=== PATIENT | female | born 1940 | race African-American/Black ===

== ENCOUNTER 2017-07-28 18:08 | Inpatient (IN) | payer MEDICARE, MEDICAID ==
[~2017-07-28] VITALS: Ht 165.1 cm; Wt 87.1 kg
[2017-07-28 18:09] VITALS: BP 98/60
[2017-07-28] MEDS ORDERED: DICLO GEL1 EACH TP (18:20)
[2017-07-28] MEDS ORDERED: PLAVIX75 MG ORAL (18:20)
[2017-07-28] MEDS ORDERED: STOOL SOFTENER100 MG PO (18:20)
[2017-07-28] MEDS ORDERED: VITAMIN D31000 UNI1 PO (18:20)
[2017-07-28] MEDS ORDERED: TYLENOL EXTRA500 MG ORAL (18:20)
[2017-07-28] MEDS ORDERED: GABAPENTIN300 MG ORAL (18:20)
[2017-07-28] MEDS ORDERED: FOSAMAX70 MG ORAL ×2 (18:20)
[2017-07-28] MEDS ORDERED: NITROSTAT0.4 M1 SL (18:20)
[2017-07-28] MEDS ORDERED: MISOPROSTOL200 MCG PO (18:20)
[2017-07-28] MEDS ORDERED: LD2JL30 TOPIC (18:20)
[2017-07-28] MEDS ORDERED: POTASSIUM CHLOR8 ME2 PO (18:20)
[2017-07-28] MEDS ORDERED: ATENOLOL50 MG ORAL (18:20)
[2017-07-28] MEDS ORDERED: DICYCLOMINE HCL10 MG PO (18:20)
[2017-07-28] MEDS ORDERED: DEXILANT30 MG ORAL (18:20)
[2017-07-28] MEDS ORDERED: MEDROL DOSEPAK4 MG ORAL (18:20)
--- NOTE | 2017-07-28 19:27 | Emergency Room Report ---
History of Present Illness General Chief Complaint: General Complaint Source: Patient, Family Member, EMS Present Illness HPI Patient is a 76-year-old female brought in by EMS after increased generalized weakness and syncopal episode. Patient reported having of abdominal pain which radiated to her pelvis. The patient was having sharp cramping sensation. This is associated with some increased dysuria. She was having blood drawn at her physician when she subsequently passed out. The patient was sent in by EMS. Allergies: Coded Allergies: MORPHINE (Verified Allergy, Unknown, 07/28/17) PENICILLINS (Verified Allergy, Unknown, 07/28/17) Patient History Past Medical History: see triage record Reviewed Nursing Documentation: PMH: Agreed; PSxH: Agreed Nursing Documentation-PMH Past Medical History: No History, Except For Hx Cardiac Problems: Yes - quadruple bypass Review of Systems All Other Systems: negative except mentioned in HPI Physical Exam Vital Signs Date Time Temp Pulse Resp B/P (MAP) Pulse Ox O2 Delivery O2 Flow Rate FiO2 07/28/17 17:59 97.9 79 16 102/70 98 Room Air 97.9 Sp02 EP Interpretation: reviewed, normal General Appearance: normal inspection, well appearing, no apparent distress, alert, GCS 15, Chronically Ill Head: atraumatic ENT: normal ENT inspection, hearing grossly normal, normal voice Neck: normal inspection, full range of motion, supple, no bony tend Respiratory: normal inspection, lungs clear, normal breath sounds, no respiratory distress, no retraction, no wheezing Cardiovascular #1: regular rate, rhythm, no edema Gastrointestinal: normal inspection, normal bowel sounds, non tender, soft, no guarding, no hernia Genitourinary: no CVA tenderness Musculoskeletal: normal inspection, back normal, normal range of motion Neurologic: normal inspection, alert, oriented x3, responsive, rubber thread spooler III-XII nml as tested, motor strength/tone normal, speech normal Psychiatric: normal inspection, judgement/insight normal, mood/affect normal Skin: normal inspection, normal color, no rash Medical Decision Making Diagnostic Impression: Primary Impression: Syncope Additional Impressions: Coronary artery disease Urinary tract infection ER Course Patient presented for syncope. Differential diagnosis included was not limited to aortic aneurysm, cardiac arrhythmia, vasovagal episode, orthostatic syncope among others.Because of complexity of patient's case laboratory testing and imaging studies were ordered. Laboratory studies showed adequate hemoglobin with some evidence of urinary infection. I EKG interpreted by me showed-sinus bradycardia with a rate of [address] or T wave changes.Patient's troponin was noted to be 0. CT of the abdomen pelvis read by radiology showed Diverticulosis without evidence of diverticulitis. Dr. Venegas was contacted for for inpatient management due to patient's cardiac risk factors. Labs Test 07/28/17 19:50 07/28/17 20:49 White Blood Count 10.2 K/UL (4.8-10.8) Red Blood Count 4.47 M/UL (4.20-5.40) Hemoglobin 13.3 G/DL (12.0-16.0) Hematocrit 39.5 % (37.0-47.0) Mean Corpuscular Volume 88 FL (80-99) Mean Corpuscular Hemoglobin 29.7 PG (27.0-31.0) Mean Corpuscular Hemoglobin Concent 33.6 G/DL (32.0-36.0) Red Cell Distribution Width 12.6 % (11.6-14.8) Platelet Count 237 K/UL (150-450) Mean Platelet Volume 7.8 FL (6.5-10.1) Neutrophils (%) (Auto) 65.2 % (45.0-75.0) Lymphocytes (%) (Auto) 24.4 % (20.0-45.0) Monocytes (%) (Auto) 8.6 % (1.0-10.0) Eosinophils (%) (Auto) 0.8 % (0.0-3.0) Basophils (%) (Auto) 1.0 % (0.0-2.0) Prothrombin Time 10.0 SEC (9.30-11.50) Prothromb Time International Ratio 1.0 (0.9-1.1) Activated Partial Thromboplast Time 24 SEC (23-33) Sodium Level 141 MMOL/L (136-145) Potassium Level 3.1 MMOL/L (3.5-5.1) Chloride Level 104 MMOL/L (98-107) Carbon Dioxide Level 26 MMOL/L (21-32) Anion Gap 11 mmol/L (5-15) Blood Urea Nitrogen 19 mg/dL (7-18) Creatinine 1.2 MG/DL (0.55-1.30) Estimat Glomerular Filtration Rate mL/min (>60) Glucose Level 107 MG/DL (74-106) Calcium Level 9.6 MG/DL (8.5-10.1) Total Bilirubin 0.4 MG/DL (0.2-1.0) Aspartate Amino Transf (AST/SGOT) 13 U/L (15-37) Alanine Aminotransferase (ALT/SGPT) 11 U/L (12-78) Alkaline Phosphatase 71 U/L (46-116) Troponin I 0.000 ng/mL (0.000-0.056) Total Protein 7.6 G/DL (6.4-8.2) Albumin 3.6 G/DL (3.4-5.0) Globulin 4.0 g/dL Albumin/Globulin Ratio 0.9 (1.0-2.7) Lipase 34 U/L (73-393) Urine Color Marta Urine Appearance Slightly cloudy Urine pH 5 (4.5-8.0) Urine Specific [place] 1.015 (1.005-1.035) Urine Protein 2+ (NEGATIVE) Urine Glucose (UA) Negative (NEGATIVE) Urine Ketones 1+ (NEGATIVE) Urine Occult Blood Negative (NEGATIVE) Urine Nitrite Negative (NEGATIVE) Urine Bilirubin 1+ (NEGATIVE) Urine Ictotest Positive Urine Urobilinogen 4 MG/DL (0.0-1.0) Urine Leukocyte Esterase 1+ (NEGATIVE) Urine RBC 0-2 /HPF (0 - 2) Urine WBC 5-10 /HPF (0 - 2) Urine Squamous Epithelial Cells Many /LPF (NONE/OCC) Urine Bacteria Many /HPF (NONE) EKG Diagnostic Results Rate: bradycardiac Rhythm: NSR ST Segments: no acute changes Rhythm Strip Diag. Results EP Interpretation: yes Rhythm: NSR, no PVC's, no ectopy Last Vital Signs Date Time Temp Pulse Resp B/P (MAP) Pulse Ox O2 Delivery O2 Flow Rate FiO2 07/28/17 18:09 97.9 63 23 98/60 99 Room Air 97.9 Status: unchanged Disposition: ADMITTED INPATIENT Condition: Serious Referrals: NON PHYSICIAN (PCP) Lv Ward Jul 28, 2017 19:27
[2017-07-28 20:35] LABS: EOSINOPHILS % (AUTO) 0.8 % (0.0-3.0); HEMATOCRIT 39.5 % (37.0-47.0); HEMOGLOBIN 13.3 G/DL (12.0-16.0); LYMPHOCYTES % (AUTO) 24.4 % (20.0-45.0); MEAN CORPUSCULAR VOLUME 88 FL (80-99); MONOCYTES % (AUTO) 8.6 % (1.0-10.0); NEUTROPHILS % (AUTO) 65.2 % (45.0-75.0); PLATELET COUNT 237 K/UL (150-450); RED BLOOD COUNT 4.47 M/UL (4.20-5.40); RED CELL DISTRIBUTION WIDTH 12.6 % (11.6-14.8); WHITE BLOOD COUNT 10.2 K/UL (4.8-10.8)
[2017-07-28 20:38] LABS: ANION GAP 11 mmol/L (5-15); BLOOD UREA NITROGEN 19 mg/dL (7-18); CALCIUM 9.6 MG/DL (8.5-10.1); CARBON DIOXIDE 26 MMOL/L (21-32); CHLORIDE 104 MMOL/L (98-107); CREATININE 1.2 MG/DL (0.55-1.30); POTASSIUM 3.1 MMOL/L (3.5-5.1); SODIUM 141 MMOL/L (136-145)
[2017-07-28 20:42] LABS: ALANINE AMINOTRANSFERASE 11 U/L (12-78); ALBUMIN 3.6 G/DL (3.4-5.0); ALBUMIN/GLOBULIN RATIO 0.9 (1.0-2.7); ALKALINE PHOSPHATASE 71 U/L (46-116); ASPARTATE AMINO TRANSFERASE 13 U/L (15-37); BILIRUBIN,TOTAL 0.4 MG/DL (0.2-1.0)
[2017-07-28 21:17] LABS: APPEARANCE,URINE SLIGHTLY CLOUDY; BILIRUBIN, URINE 1+ (NEGATIVE); GLUCOSE, URINE (UA) NEGATIVE (NEGATIVE); KETONES,URINE 1+ (NEGATIVE); LEUKOCYTE ESTERASE ,URINE 1+ (NEGATIVE); NITRITE,URINE NEGATIVE (NEGATIVE); PH,URINE 5 (4.5-8.0); PROTEIN,URINE 2+ (NEGATIVE); UROBILINOGEN,URINE 4 MG/DL (0.0-1.0)
[2017-07-28 21:20] LABS: COLOR,URINE AMBER
[2017-07-28 23:00] VITALS: BP 101/75
[2017-07-28] MEDS ORDERED: Dicyclomine HCl 10mg/5ml oral soln ORAL ONE (23:15)
[2017-07-29] VITALS: BP_SYST 115; BP_DIAS 48; BP_DIAS 75
[2017-07-29] MEDS ORDERED: Miralax 17gm pkt ORAL PRN (02:15)
[2017-07-29 04:00] VITALS: BP 107/61
[2017-07-29 07:50] LABS: BASOPHILS % (AUTO) 0.8 % (0.0-2.0); EOSINOPHILS % (AUTO) 1.5 % (0.0-3.0); HEMATOCRIT 37.2 % (37.0-47.0); HEMOGLOBIN 12.6 G/DL (12.0-16.0); MEAN CORPUSCULAR VOLUME 89 FL (80-99); MONOCYTES % (AUTO) 8.6 % (1.0-10.0); NEUTROPHILS % (AUTO) 53.1 % (45.0-75.0); PLATELET COUNT 229 K/UL (150-450); RED BLOOD COUNT 4.17 M/UL (4.20-5.40); RED CELL DISTRIBUTION WIDTH 12.7 % (11.6-14.8); WHITE BLOOD COUNT 8.8 K/UL (4.8-10.8)
[2017-07-29 08:00] VITALS: BP 103/56
[2017-07-29 08:30] LABS: ANION GAP 10 mmol/L (5-15); BLOOD UREA NITROGEN 17 mg/dL (7-18); CALCIUM 9.1 MG/DL (8.5-10.1); CARBON DIOXIDE 26 MMOL/L (21-32); CHLORIDE 104 MMOL/L (98-107); CHOLESTEROL 136 MG/DL (< 200); HDL CHOLESTEROL 68 MG/DL (40-60); POTASSIUM 3.3 MMOL/L (3.5-5.1); SODIUM 140 MMOL/L (136-145); TRIGLYCERIDES 112 MG/DL (30-150)
[2017-07-29] MEDS: Miralax 17gm pkt ORAL SCH (09:01)
[2017-07-29] MEDS: Dicyclomine 10mg Cap ORAL SCH ×4 (09:02→20:40)
[2017-07-29] MEDS: Docusate 100mg cap ORAL SCH ×2 (09:02→20:40)
[2017-07-29] MEDS: Sennosides 8.6mg ORAL SCH (09:03)
[2017-07-29] MEDS: Heparin 5000 units/ml inj SUBQ SCH ×2 (09:06→20:40)
--- NOTE | 2017-07-29 10:29 | Diagnostic Imaging Report ---
Clinical Indication: Abdominal pain Technique: No oral contrast utilized, per emergency room physician request IV administration nonionic contrast. Venous phase spiral acquisition obtained through the abdomen and pelvis. Multiplanar reconstructions were generated. Total dose length product 741.67 mGycm. CTDIvol(s) 15.23 mGy. Dose reduction achieved using automated exposure control Comparison: none Findings: There is colonic diverticulosis. No evidence of diverticulitis. Moderate dense stool is seen in the distal colon. The appendix is normal. No small bowel distention. No free or loculated intraperitoneal air or fluid is evident. The liver, gallbladder, bile ducts are unremarkable. The pancreas is mildly atrophic. The spleen, adrenals and kidneys are unremarkable. No retroperitoneal or mesenteric mass or adenopathy. No pelvic mass or adenopathy. The included lung bases demonstrate some atelectasis and scarring, are otherwise clear. The bones demonstrate minimal degenerative spondylosis changes. Impression: No acute abnormality Colonic diverticulosis. No evidence of diverticulitis Basilar pulmonary atelectasis and/or scarring Minimal degenerative spondylosis incidentally noted This agrees with the preliminary interpretation provided overnight by [facility] teleradiology service. The CT scanner at [facility] is accredited by the [employer] and the scans are performed using protocols designed to limit radiation exposure to as low as reasonably achievable to attain images of sufficient resolution adequate for diagnostic evaluation.
[2017-07-29] MEDS ORDERED: Norco 5mg/325mg tab ORAL PRN (11:15)
[2017-07-29] MEDS ORDERED: HYDROcodone/Acetamin 10/325 tab ORAL PRN (11:15)
[2017-07-29] MEDS ORDERED: Hydromorphone 0.5mg/0.5ml inj IVP PRN (11:45)
[2017-07-29 12:00] VITALS: BP 100/66
[2017-07-29] MEDS: D5 1/2NS w/KCl 20mEq 1,000 ML IV SCH (13:37)
--- NOTE | 2017-07-29 13:44 | History and Physical ---
History of Present Illness General Date patient seen: Jul 29, 2017 Time patient seen: 13:44 Reason for Hospitalization: syncope, abd pain Present Illness HPI 76y/o female with pmh of CAD s/p CABG, CVA, HTN, OA, osteoporosis, fibromyalgia , pseudogout who presents with syncope and abd pain. Pt brought in by EMS after syncopal episode. She was having blood drawn at outpt lab when she subsequently passed out. No reports of seizure activity. No trauma report. Pt also c/o worsening abd pain, as well as pelvic, vaginal and rectal pain. Described as crampy pain in lower abd w/ radiation to pelvis. States she has had similar episodes prior. C/o dysuria. Has h/o UTIs. C/o constipation, no BM in over a week. Denies f/c, n/v, diarrhea, chest pain, SOB, palpitations, dizziness. C/o some abdominal bloating. Denies recent travel or sick contacts. In ED, pt w/ positive U/A c/w UTI, given levaquin. CT a/p showed no acute abnormality but showed diverticulosis. Allergies: Coded Allergies: MORPHINE (Verified Allergy, Unknown, 07/28/17) PENICILLINS (Verified Allergy, Unknown, 07/28/17) Medication History Scheduled Alendronate Sodium* (Fosamax*), 70 MG ORAL 1 TAB EVERY 7 DAYS. , (Reported) Alendronate Sodium* (Fosamax*), 70 MG ORAL 1/2 TAB EVERY MORNIN, (Reported) Atenolol* (Tenormin*), 50 MG ORAL DAILY, (Reported) Clopidogrel Bisulfate* (Plavix*), 75 MG ORAL DAILY, (Reported) Dexlansoprazole (Dexilant), 30 MG ORAL DAILY, (Reported) Dicyclomine Hcl* (Dicyclomine Hcl*), 10 MG PO QID, (Reported) Gabapentin* (Gabapentin*), 300 MG ORAL THREE TIMES A DAY, (Reported) Lidocaine HCL 2% Jelly* (Lidocaine Jelly 2%*), 5 ML TOPIC DAILY, (Reported) Methylprednisolone (Methylprednisolone*), 4 MG ORAL .as directed, (Reported) Misoprostol* (Cytotec*), 200 MCG PO 4 TAB VAGINAL, (Reported) Scheduled PRN Acetaminophen* (Tylenol Extra Strength*), 500 MG ORAL Q6H PRN for Mild Pain/ Temp > 100.5, (Reported) Nitroglycerin (Nitrostat), 0.4 MG SL Q5M X3 DOSES PRN for CHEST PAIN, (Reported) Miscellaneous Medications Cholecalciferol (Vitamin D3) (Vitamin D3), 1,000 UNIT PO, (Reported) Diclofenac Sodium (Diclo Gel), 1 EACH TP, (Reported) Docusate Sodium (Stool Softener), 100 MG PO, (Reported) Potassium Chloride (Potassium Chloride), 8 MEQ PO, (Reported) Patient History History Provided By: Patient, Medical Record Healthcare decision maker Resuscitation status Full Code Advanced Directive on File No Past Medical/Surgical History Past Medical/Surgical History: (1) CAD s/p CABG (2) CVA (cerebral vascular accident) (3) HTN (hypertension) (4) Osteoporosis (5) Osteoarthritis (6) Fibromyalgia (7) Degenerative disc disease (8) Pseudogout (9) Chondrocalcinosis Family History Family History: Patient reports no known family medical history. Social History Social History: (1) lives at home (2) Smokes 6 to 10 cigarettes per day Review of Systems Constitutional: Reports: malaise, weakness Eye: Reports: no symptoms ENT: Reports: no symptoms Respiratory: Reports: no symptoms Cardiovascular: Reports: syncope Gastrointestinal: Reports: abdominal pain, constipation Genitourinary: Reports: dysuria, pain Musculoskeletal: Reports: no symptoms Skin: Reports: no symptoms Psychiatric: Reports: no symptoms Neurological: Reports: no symptoms Endocrine: Reports: no symptoms Hematologic/Lymphatic: Reports: no symptoms Physical Exam Physical Exam Narrative General: alert, cooperative, no distress, appears stated age Head: normocephalic, without obvious abnormality, atraumatic Eyes: conjunctivae/corneas clear. PERRL, EOM's intact Throat: lips, mucosa, and tongue normal. Dry MM Neck: supple, symmetrical, trachea midline, and no JVD Lungs: clear to auscultation bilaterally Heart: regular rate and rhythm, S1, S2 normal, no murmur, click, rub or gallop Abdomen: soft, +TTP of lower abd w/o rebound or guarding, non-distended, bowel sounds normal Extremities: extremities normal, atraumatic, no cyanosis or edema Pulses: 2+ and symmetric Skin: skin color, texture, turgor normal; no rashes or lesions Neurologic: grossly normal, no focal deficits Last 24 Hour Vital Signs Date Time Temp Pulse Resp B/P (MAP) Pulse Ox O2 Delivery O2 Flow Rate FiO2 07/29/17 08:00 61 07/29/17 04:00 71 07/29/17 04:00 97.7 68 20 107/61 100 Room Air 97.7 07/29/17 00:00 63 15 115/75 100 Room Air 07/29/17 00:00 98.1 55 15 115/75 100 Room Air 208.6 63 07/29/17 00:00 98.1 55 18 115/48 98 Room Air 98.1 07/28/17 23:25 97.9 07/28/17 23:00 97.9 60 14 101/75 98 Room Air 97.9 07/28/17 18:09 97.9 63 23 98/60 99 Room Air 97.9 07/28/17 17:59 97.9 79 16 102/70 98 Room Air 97.9 Intake and Output 07/28/17 07/29/17 19:00 07:00 Intake Total 0 ml Balance 0 ml Intake Oral 0 ml # Voids 1 Laboratory Tests Test 07/28/17 19:50 07/28/17 20:49 07/29/17 06:55 White Blood Count 10.2 K/UL (4.8-10.8) 8.8 K/UL (4.8-10.8) Red Blood Count 4.47 M/UL (4.20-5.40) 4.17 M/UL (4.20-5.40) L Hemoglobin 13.3 G/DL (12.0-16.0) 12.6 G/DL (12.0-16.0) Hematocrit 39.5 % (37.0-47.0) 37.2 % (37.0-47.0) Mean Corpuscular Volume 88 FL (80-99) 89 FL (80-99) Mean Corpuscular Hemoglobin 29.7 PG (27.0-31.0) 30.1 PG (27.0-31.0) Mean Corpuscular Hemoglobin Concent 33.6 G/DL (32.0-36.0) 33.8 G/DL (32.0-36.0) Red Cell Distribution Width 12.6 % (11.6-14.8) 12.7 % (11.6-14.8) Platelet Count 237 K/UL (150-450) 229 K/UL (150-450) Mean Platelet Volume 7.8 FL (6.5-10.1) 8.1 FL (6.5-10.1) Neutrophils (%) (Auto) 65.2 % (45.0-75.0) 53.1 % (45.0-75.0) Lymphocytes (%) (Auto) 24.4 % (20.0-45.0) 36.0 % (20.0-45.0) Monocytes (%) (Auto) 8.6 % (1.0-10.0) 8.6 % (1.0-10.0) Eosinophils (%) (Auto) 0.8 % (0.0-3.0) 1.5 % (0.0-3.0) Basophils (%) (Auto) 1.0 % (0.0-2.0) 0.8 % (0.0-2.0) Prothrombin Time 10.0 SEC (9.30-11.50) Prothromb Time International Ratio 1.0 (0.9-1.1) Activated Partial Thromboplast Time 24 SEC (23-33) Sodium Level 141 MMOL/L (136-145) 140 MMOL/L (136-145) Potassium Level 3.1 MMOL/L (3.5-5.1) L 3.3 MMOL/L (3.5-5.1) L Chloride Level 104 MMOL/L (98-107) 104 MMOL/L (98-107) Carbon Dioxide Level 26 MMOL/L (21-32) 26 MMOL/L (21-32) Anion Gap 11 mmol/L (5-15) 10 mmol/L (5-15) Blood Urea Nitrogen 19 mg/dL (7-18) H 17 mg/dL (7-18) Creatinine 1.2 MG/DL (0.55-1.30) 1.0 MG/DL (0.55-1.30) Estimat Glomerular Filtration Rate mL/min (>60) mL/min (>60) Glucose Level 107 MG/DL (74-106) H 90 MG/DL (74-106) Calcium Level 9.6 MG/DL (8.5-10.1) 9.1 MG/DL (8.5-10.1) Total Bilirubin 0.4 MG/DL (0.2-1.0) Aspartate Amino Transf (AST/SGOT) 13 U/L (15-37) L Alanine Aminotransferase (ALT/SGPT) 11 U/L (12-78) L Alkaline Phosphatase 71 U/L (46-116) Troponin I 0.000 ng/mL (0.000-0.056) Total Protein 7.6 G/DL (6.4-8.2) Albumin 3.6 G/DL (3.4-5.0) Globulin 4.0 g/dL Albumin/Globulin Ratio 0.9 (1.0-2.7) L Lipase 34 U/L (73-393) L Urine Color Marta Urine Appearance Slightly cloudy Urine pH 5 (4.5-8.0) Urine Specific [place] 1.015 (1.005-1.035) Urine Protein 2+ (NEGATIVE) H Urine Glucose (UA) Negative (NEGATIVE) Urine Ketones 1+ (NEGATIVE) H Urine Occult Blood Negative (NEGATIVE) Urine Nitrite Negative (NEGATIVE) Urine Bilirubin 1+ (NEGATIVE) H Urine Ictotest Positive Urine Urobilinogen 4 MG/DL (0.0-1.0) H Urine Leukocyte Esterase 1+ (NEGATIVE) H Urine RBC 0-2 /HPF (0 - 2) Urine WBC 5-10 /HPF (0 - 2) H Urine Squamous Epithelial Cells Many /LPF (NONE/OCC) H Urine Bacteria Many /HPF (NONE) H Hemoglobin A1c 6.0 % (4.3-6.0) Magnesium Level 1.8 MG/DL (1.8-2.4) Triglycerides Level 112 MG/DL (30-150) Cholesterol Level 136 MG/DL (< 200) LDL Cholesterol 61 mg/dL (<100) HDL Cholesterol 68 MG/DL (40-60) H Cholesterol/HDL Ratio 2.0 (3.3-4.4) L Thyroid Stimulating Hormone (TSH) 0.397 uiU/mL (0.358-3.740) Microbiology Date/Time Source Procedure Growth Status 07/28/17 20:49 Urine,Clean Catch Urine Culture - Preliminary NO GROWTH Resulted Height (Feet): 5 Height (Inches): 5.00 Weight (Pounds): 192 Medications Current Medications Medications (Trade) Dose Ordered Sig/Ej Route PRN Reason Start Time Stop Time Status Last Admin Dose Admin Acetaminophen (Tylenol) 650 mg Q4H PRN ORAL Mild Pain (Pain Scale 1-3) 07/29/17 02:15 08/28/17 02:14 07/29/17 09:05 Acetaminophen (Tylenol) 650 mg Q4H PRN ORAL fever 07/29/17 02:15 08/28/17 02:14 Acetaminophen/ Hydrocodone Bitart ([place] 10/325) 1 tab Q4H PRN ORAL Severe Pain (Pain Scale 7-10) 07/29/17 11:15 08/05/17 11:14 Future Hold Acetaminophen/ Hydrocodone Bitart ([place] 5/325) 1 tab Q4H PRN ORAL Moderate Pain (Pain Scale 4-6) 07/29/17 11:15 08/05/17 11:14 Future Hold Atenolol (Tenormin) 50 mg DAILY ORAL 07/29/17 09:00 08/28/17 08:59 Bisacodyl (Dulcolax) 10 mg DAILYPRN PRN RECTAL Constipation 07/29/17 02:15 08/28/17 02:14 Clopidogrel Bisulfate (Plavix) 75 mg DAILY ORAL 07/29/17 09:00 08/28/17 08:59 07/29/17 09:01 Dextrose (Dextrose 50%) 25 ml STAT PRN IV Hypoglycemia 07/29/17 02:15 08/28/17 02:14 Dextrose (Dextrose 50%) 50 ml STAT PRN IV Hypoglycemia 07/29/17 02:15 08/28/17 02:14 Dextrose/ Electrolytes 1,000 ml @ 75 mls/hr [id number] IV 07/29/17 14:30 08/28/17 14:29 07/29/17 13:37 Dicyclomine HCl (Bentyl) 10 mg QID ORAL 07/29/17 09:00 08/28/17 08:59 07/29/17 13:37 Diphenhydramine HCl (Benadryl) 25 mg Q6H PRN ORAL Itching/Pruritis 07/29/17 02:15 08/28/17 02:14 Docusate Sodium (Colace) 100 mg EVERY 12 HOURS ORAL 07/29/17 09:00 08/28/17 08:59 07/29/17 09:02 Gabapentin (Neurontin) 300 mg THREE TIMES A DAY ORAL 07/29/17 09:00 08/28/17 08:59 07/29/17 13:37 Heparin Sodium (Porcine) (Heparin 5000 units/ml) 5,000 units EVERY 12 HOURS SUBQ 07/29/17 09:00 08/28/17 08:59 07/29/17 09:06 Hydromorphone HCl (Dilaudid) 0.5 mg Q4H PRN IVP pain 4-10 07/29/17 12:15 08/05/17 11:44 07/29/17 12:21 Ondansetron HCl (Zofran) 4 mg Q6H PRN IVP Nausea & Vomiting 07/29/17 02:15 08/28/17 02:14 Pantoprazole (Protonix) 40 mg ACBREAKFAST ORAL 07/29/17 06:30 08/28/17 06:29 07/29/17 07:22 Polyethylene Glycol (Miralax) 17 gm DAILY ORAL 07/29/17 09:00 08/28/17 02:14 07/29/17 09:01 Sennosides (Senokot) 2 tab DAILY ORAL 07/29/17 09:00 08/28/17 08:59 07/29/17 09:03 Assessment/Plan Problem List: (1) Syncope ICD Codes: R55 - Syncope and collapse SNOMED: 821258658 Qualifiers: Qualified Codes: R55 - Syncope and collapse (2) Hypokalemia ICD Codes: E87.6 - Hypokalemia SNOMED: 55898613 (3) Abdominal pain ICD Codes: R10.9 - Unspecified abdominal pain SNOMED: 06679881 Qualifiers: Qualified Codes: R10.84 - Generalized abdominal pain (4) UTI (urinary tract infection) ICD Codes: N39.0 - Urinary tract infection, site not specified SNOMED: 62351925 (5) CAD s/p CABG (6) CVA (cerebral vascular accident) ICD Codes: I63.9 - Cerebral infarction, unspecified SNOMED: 912407049 (7) HTN (hypertension) ICD Codes: I10 - Essential (primary) hypertension SNOMED: 79081093 Status: stable Assessment/Plan Syncope appears to be vasovagal type given occurred while getting blood drawn and in setting of pain Abd pain possibly 2/2 UTI Admit to tele Cardiology consulted for syncope eval Trop neg. EKG w/o acute ST/T changes Check TTE Check TSH, A1C, B12/folate, Vit D GI consulted given abd pain CLD for now mIVFs w/ KCl Monitor lytes and replete Surgery eval Empiric ceftriaxone for UTI (07/29-) s/p levaquin in ED on 07/28 F/u urine culture Pain control, bowel regimen, supportive care Pt currently requiring IV narcotics for pain control. Wean off as tolerated DVT Prophylaxis: SCD, HSQ Code Status: Full Hospital Classification Declaration: Based on this initial evaluation, and depending on the patient's clinical course, I anticipate that this patient will require hospitalization for 2-3 days for syncope eval, intractable abd pain and close respiratory/hemodynamic monitoring. Disposition: Once the patient is stable to leave the hospital, I anticipate the patient will likely be discharged to the following environment: home with HH vs SNF I spent 72 minutes on this patient's case, and >50% were dedicated to counseling and/or care coordination. Discussed with patient/family, nursing staff, SW/CM, GI, surgery, cardiology regarding clinical status, treatment course, and disposition planning. D/w GI and surgery regarding abd pain, abx. D/ w cardiology re syncope eval. Medical decision complexity: high Pt requiring IV narcotics for pain control Discussions with GI, surgery, cardiology Time of note may not reflect time of encounter. Galen Mehta M.D. Jul 29, 2017 13:44
--- NOTE | 2017-07-29 15:15 | Cardiac Electrophysiology PN ---
Subjective Subjective [id number] Objective Last 24 Hour Vital Signs Date Time Temp Pulse Resp B/P (MAP) Pulse Ox O2 Delivery O2 Flow Rate FiO2 07/29/17 08:00 61 07/29/17 04:00 71 07/29/17 04:00 97.7 68 20 107/61 100 Room Air 97.7 07/29/17 00:00 63 15 115/75 100 Room Air 07/29/17 00:00 98.1 55 15 115/75 100 Room Air 208.6 63 07/29/17 00:00 98.1 55 18 115/48 98 Room Air 98.1 07/28/17 23:25 97.9 07/28/17 23:00 97.9 60 14 101/75 98 Room Air 97.9 07/28/17 18:09 97.9 63 23 98/60 99 Room Air 97.9 07/28/17 17:59 97.9 79 16 102/70 98 Room Air 97.9 Intake and Output 07/28/17 07/29/17 19:00 07:00 Intake Total 0 ml Balance 0 ml Intake Oral 0 ml # Voids 1 Laboratory Tests Test 07/28/17 19:50 07/28/17 20:49 07/29/17 06:55 White Blood Count 10.2 K/UL (4.8-10.8) 8.8 K/UL (4.8-10.8) Red Blood Count 4.47 M/UL (4.20-5.40) 4.17 M/UL (4.20-5.40) L Hemoglobin 13.3 G/DL (12.0-16.0) 12.6 G/DL (12.0-16.0) Hematocrit 39.5 % (37.0-47.0) 37.2 % (37.0-47.0) Mean Corpuscular Volume 88 FL (80-99) 89 FL (80-99) Mean Corpuscular Hemoglobin 29.7 PG (27.0-31.0) 30.1 PG (27.0-31.0) Mean Corpuscular Hemoglobin Concent 33.6 G/DL (32.0-36.0) 33.8 G/DL (32.0-36.0) Red Cell Distribution Width 12.6 % (11.6-14.8) 12.7 % (11.6-14.8) Platelet Count 237 K/UL (150-450) 229 K/UL (150-450) Mean Platelet Volume 7.8 FL (6.5-10.1) 8.1 FL (6.5-10.1) Neutrophils (%) (Auto) 65.2 % (45.0-75.0) 53.1 % (45.0-75.0) Lymphocytes (%) (Auto) 24.4 % (20.0-45.0) 36.0 % (20.0-45.0) Monocytes (%) (Auto) 8.6 % (1.0-10.0) 8.6 % (1.0-10.0) Eosinophils (%) (Auto) 0.8 % (0.0-3.0) 1.5 % (0.0-3.0) Basophils (%) (Auto) 1.0 % (0.0-2.0) 0.8 % (0.0-2.0) Prothrombin Time 10.0 SEC (9.30-11.50) Prothromb Time International Ratio 1.0 (0.9-1.1) Activated Partial Thromboplast Time 24 SEC (23-33) Sodium Level 141 MMOL/L (136-145) 140 MMOL/L (136-145) Potassium Level 3.1 MMOL/L (3.5-5.1) L 3.3 MMOL/L (3.5-5.1) L Chloride Level 104 MMOL/L (98-107) 104 MMOL/L (98-107) Carbon Dioxide Level 26 MMOL/L (21-32) 26 MMOL/L (21-32) Anion Gap 11 mmol/L (5-15) 10 mmol/L (5-15) Blood Urea Nitrogen 19 mg/dL (7-18) H 17 mg/dL (7-18) Creatinine 1.2 MG/DL (0.55-1.30) 1.0 MG/DL (0.55-1.30) Estimat Glomerular Filtration Rate mL/min (>60) mL/min (>60) Glucose Level 107 MG/DL (74-106) H 90 MG/DL (74-106) Calcium Level 9.6 MG/DL (8.5-10.1) 9.1 MG/DL (8.5-10.1) Total Bilirubin 0.4 MG/DL (0.2-1.0) Aspartate Amino Transf (AST/SGOT) 13 U/L (15-37) L Alanine Aminotransferase (ALT/SGPT) 11 U/L (12-78) L Alkaline Phosphatase 71 U/L (46-116) Troponin I 0.000 ng/mL (0.000-0.056) Total Protein 7.6 G/DL (6.4-8.2) Albumin 3.6 G/DL (3.4-5.0) Globulin 4.0 g/dL Albumin/Globulin Ratio 0.9 (1.0-2.7) L Lipase 34 U/L (73-393) L Urine Color Marta Urine Appearance Slightly cloudy Urine pH 5 (4.5-8.0) Urine Specific [place] 1.015 (1.005-1.035) Urine Protein 2+ (NEGATIVE) H Urine Glucose (UA) Negative (NEGATIVE) Urine Ketones 1+ (NEGATIVE) H Urine Occult Blood Negative (NEGATIVE) Urine Nitrite Negative (NEGATIVE) Urine Bilirubin 1+ (NEGATIVE) H Urine Ictotest Positive Urine Urobilinogen 4 MG/DL (0.0-1.0) H Urine Leukocyte Esterase 1+ (NEGATIVE) H Urine RBC 0-2 /HPF (0 - 2) Urine WBC 5-10 /HPF (0 - 2) H Urine Squamous Epithelial Cells Many /LPF (NONE/OCC) H Urine Bacteria Many /HPF (NONE) H Hemoglobin A1c 6.0 % (4.3-6.0) Magnesium Level 1.8 MG/DL (1.8-2.4) Triglycerides Level 112 MG/DL (30-150) Cholesterol Level 136 MG/DL (< 200) LDL Cholesterol 61 mg/dL (<100) HDL Cholesterol 68 MG/DL (40-60) H Cholesterol/HDL Ratio 2.0 (3.3-4.4) L Thyroid Stimulating Hormone (TSH) 0.397 uiU/mL (0.358-3.740) Microbiology Date/Time Source Procedure Growth Status 07/28/17 20:49 Urine,Clean Catch Urine Culture - Preliminary NO GROWTH Resulted Parish Chase MD Jul 29, 2017 15:15
[2017-07-29 16:00] VITALS: BP 103/57
[2017-07-29] MEDS ORDERED: Polyethylene Glycol 238gm bottle ORAL ONE (16:00)
[2017-07-29] MEDS ORDERED: Bisacodyl EC 5mg tab ORAL ONE (16:00)
[2017-07-29] MEDS ORDERED: Magnesium Citrate Liq Btl ORAL ONE (16:00)
--- NOTE | 2017-07-29 16:11 | Consultation ---
History of Present Illness General Date patient seen: Jul 29, 2017 Chief Complaint: General Complaint Reason for Consultation: abdominal pain Present Illness HPI 76 year old female with multiple medical comorbidities presented with syncope and noted to have abdominal, pelvic, vaginal pain. pain as cramping discomfort in lower abdomen with radiation to pelvis. similar episodes prior. no n/v/f/ c. feels somewhat bloated. in ED had labs which were okay, CT without acute abnormality, and UA with UTI. surgery called to evaluate for abdominal pain. patient seen, chart reviewed, patient examined. Allergies: Coded Allergies: MORPHINE (Verified Allergy, Unknown, 07/28/17) PENICILLINS (Verified Allergy, Unknown, 07/28/17) Medication History Scheduled Alendronate Sodium* (Fosamax*), 70 MG ORAL 1 TAB EVERY 7 DAYS. , (Reported) Alendronate Sodium* (Fosamax*), 70 MG ORAL 1/2 TAB EVERY MORNIN, (Reported) Atenolol* (Tenormin*), 50 MG ORAL DAILY, (Reported) Clopidogrel Bisulfate* (Plavix*), 75 MG ORAL DAILY, (Reported) Dexlansoprazole (Dexilant), 30 MG ORAL DAILY, (Reported) Dicyclomine Hcl* (Dicyclomine Hcl*), 10 MG PO QID, (Reported) Gabapentin* (Gabapentin*), 300 MG ORAL THREE TIMES A DAY, (Reported) Lidocaine HCL 2% Jelly* (Lidocaine Jelly 2%*), 5 ML TOPIC DAILY, (Reported) Methylprednisolone (Methylprednisolone*), 4 MG ORAL .as directed, (Reported) Misoprostol* (Cytotec*), 200 MCG PO 4 TAB VAGINAL, (Reported) Scheduled PRN Acetaminophen* (Tylenol Extra Strength*), 500 MG ORAL Q6H PRN for Mild Pain/ Temp > 100.5, (Reported) Nitroglycerin (Nitrostat), 0.4 MG SL Q5M X3 DOSES PRN for CHEST PAIN, (Reported) Miscellaneous Medications Cholecalciferol (Vitamin D3) (Vitamin D3), 1,000 UNIT PO, (Reported) Diclofenac Sodium (Diclo Gel), 1 EACH TP, (Reported) Docusate Sodium (Stool Softener), 100 MG PO, (Reported) Potassium Chloride (Potassium Chloride), 8 MEQ PO, (Reported) Patient History History Provided By: Patient, Medical Record, PMD Healthcare decision maker Resuscitation status Full Code Advanced Directive on File No Past Medical/Surgical History Past Medical/Surgical History: (1) Abdominal pain (2) Coronary artery disease (3) Urinary tract infection (4) Syncope Review of Systems All Other Systems: negative except mentioned in HPI Physical Exam General Appearance: no apparent distress, alert Lines, tubes and drains: peripheral HEENT: normocephalic, mucous membranes moist Neck: normal inspection Respiratory/Chest: lungs clear, normal breath sounds, no respiratory distress, no accessory muscle use Cardiovascular/Chest: normal peripheral pulses, normal rate Abdomen: normal bowel sounds, soft, no organomegaly, no mass, tender Extremities: normal inspection Skin Exam: normal pigmentation Neurologic: alert, oriented x 3, responsive Last 24 Hour Vital Signs Date Time Temp Pulse Resp B/P (MAP) Pulse Ox O2 Delivery O2 Flow Rate FiO2 07/29/17 08:00 61 07/29/17 04:00 71 07/29/17 04:00 97.7 68 20 107/61 100 Room Air 97.7 07/29/17 00:00 63 15 115/75 100 Room Air 07/29/17 00:00 98.1 55 15 115/75 100 Room Air 208.6 63 07/29/17 00:00 98.1 55 18 115/48 98 Room Air 98.1 07/28/17 23:25 97.9 07/28/17 23:00 97.9 60 14 101/75 98 Room Air 97.9 07/28/17 18:09 97.9 63 23 98/60 99 Room Air 97.9 07/28/17 17:59 97.9 79 16 102/70 98 Room Air 97.9 Intake and Output 07/28/17 07/29/17 19:00 07:00 Intake Total 0 ml Balance 0 ml Intake Oral 0 ml # Voids 1 Laboratory Tests Test 07/28/17 19:50 07/28/17 20:49 07/29/17 06:55 White Blood Count 10.2 K/UL (4.8-10.8) 8.8 K/UL (4.8-10.8) Red Blood Count 4.47 M/UL (4.20-5.40) 4.17 M/UL (4.20-5.40) L Hemoglobin 13.3 G/DL (12.0-16.0) 12.6 G/DL (12.0-16.0) Hematocrit 39.5 % (37.0-47.0) 37.2 % (37.0-47.0) Mean Corpuscular Volume 88 FL (80-99) 89 FL (80-99) Mean Corpuscular Hemoglobin 29.7 PG (27.0-31.0) 30.1 PG (27.0-31.0) Mean Corpuscular Hemoglobin Concent 33.6 G/DL (32.0-36.0) 33.8 G/DL (32.0-36.0) Red Cell Distribution Width 12.6 % (11.6-14.8) 12.7 % (11.6-14.8) Platelet Count 237 K/UL (150-450) 229 K/UL (150-450) Mean Platelet Volume 7.8 FL (6.5-10.1) 8.1 FL (6.5-10.1) Neutrophils (%) (Auto) 65.2 % (45.0-75.0) 53.1 % (45.0-75.0) Lymphocytes (%) (Auto) 24.4 % (20.0-45.0) 36.0 % (20.0-45.0) Monocytes (%) (Auto) 8.6 % (1.0-10.0) 8.6 % (1.0-10.0) Eosinophils (%) (Auto) 0.8 % (0.0-3.0) 1.5 % (0.0-3.0) Basophils (%) (Auto) 1.0 % (0.0-2.0) 0.8 % (0.0-2.0) Prothrombin Time 10.0 SEC (9.30-11.50) Prothromb Time International Ratio 1.0 (0.9-1.1) Activated Partial Thromboplast Time 24 SEC (23-33) Sodium Level 141 MMOL/L (136-145) 140 MMOL/L (136-145) Potassium Level 3.1 MMOL/L (3.5-5.1) L 3.3 MMOL/L (3.5-5.1) L Chloride Level 104 MMOL/L (98-107) 104 MMOL/L (98-107) Carbon Dioxide Level 26 MMOL/L (21-32) 26 MMOL/L (21-32) Anion Gap 11 mmol/L (5-15) 10 mmol/L (5-15) Blood Urea Nitrogen 19 mg/dL (7-18) H 17 mg/dL (7-18) Creatinine 1.2 MG/DL (0.55-1.30) 1.0 MG/DL (0.55-1.30) Estimat Glomerular Filtration Rate mL/min (>60) mL/min (>60) Glucose Level 107 MG/DL (74-106) H 90 MG/DL (74-106) Calcium Level 9.6 MG/DL (8.5-10.1) 9.1 MG/DL (8.5-10.1) Total Bilirubin 0.4 MG/DL (0.2-1.0) Aspartate Amino Transf (AST/SGOT) 13 U/L (15-37) L Alanine Aminotransferase (ALT/SGPT) 11 U/L (12-78) L Alkaline Phosphatase 71 U/L (46-116) Troponin I 0.000 ng/mL (0.000-0.056) Total Protein 7.6 G/DL (6.4-8.2) Albumin 3.6 G/DL (3.4-5.0) Globulin 4.0 g/dL Albumin/Globulin Ratio 0.9 (1.0-2.7) L Lipase 34 U/L (73-393) L Urine Color Marta Urine Appearance Slightly cloudy Urine pH 5 (4.5-8.0) Urine Specific [place] 1.015 (1.005-1.035) Urine Protein 2+ (NEGATIVE) H Urine Glucose (UA) Negative (NEGATIVE) Urine Ketones 1+ (NEGATIVE) H Urine Occult Blood Negative (NEGATIVE) Urine Nitrite Negative (NEGATIVE) Urine Bilirubin 1+ (NEGATIVE) H Urine Ictotest Positive Urine Urobilinogen 4 MG/DL (0.0-1.0) H Urine Leukocyte Esterase 1+ (NEGATIVE) H Urine RBC 0-2 /HPF (0 - 2) Urine WBC 5-10 /HPF (0 - 2) H Urine Squamous Epithelial Cells Many /LPF (NONE/OCC) H Urine Bacteria Many /HPF (NONE) H Hemoglobin A1c 6.0 % (4.3-6.0) Magnesium Level 1.8 MG/DL (1.8-2.4) Triglycerides Level 112 MG/DL (30-150) Cholesterol Level 136 MG/DL (< 200) LDL Cholesterol 61 mg/dL (<100) HDL Cholesterol 68 MG/DL (40-60) H Cholesterol/HDL Ratio 2.0 (3.3-4.4) L Thyroid Stimulating Hormone (TSH) 0.397 uiU/mL (0.358-3.740) Microbiology Date/Time Source Procedure Growth Status 07/28/17 20:49 Urine,Clean Catch Urine Culture - Preliminary NO GROWTH Resulted Height (Feet): 5 Height (Inches): 5.00 Weight (Pounds): 192 Medications Current Medications Medications (Trade) Dose Ordered Sig/Ej Route PRN Reason Start Time Stop Time Status Last Admin Dose Admin Acetaminophen (Tylenol) 650 mg Q4H PRN ORAL Mild Pain (Pain Scale 1-3) 07/29/17 02:15 08/28/17 02:14 07/29/17 09:05 Acetaminophen (Tylenol) 650 mg Q4H PRN ORAL fever 07/29/17 02:15 08/28/17 02:14 Atenolol (Tenormin) 50 mg DAILY ORAL 07/29/17 09:00 08/28/17 08:59 Bisacodyl (Dulcolax) 10 mg DAILYPRN PRN RECTAL Constipation 07/29/17 02:15 08/28/17 02:14 Bisacodyl (Dulcolax) 10 mg ONCE ONCE ORAL 07/29/17 16:00 07/29/17 16:01 Clopidogrel Bisulfate (Plavix) 75 mg DAILY ORAL 07/29/17 09:00 08/28/17 08:59 07/29/17 09:01 Dextrose (Dextrose 50%) 25 ml STAT PRN IV Hypoglycemia 07/29/17 02:15 08/28/17 02:14 Dextrose (Dextrose 50%) 50 ml STAT PRN IV Hypoglycemia 07/29/17 02:15 08/28/17 02:14 Dextrose/ Electrolytes 1,000 ml @ 75 mls/hr [id number] IV 07/29/17 14:30 08/28/17 14:29 07/29/17 13:37 Dicyclomine HCl (Bentyl) 10 mg QID ORAL 07/29/17 09:00 08/28/17 08:59 07/29/17 13:37 Diphenhydramine HCl (Benadryl) 25 mg Q6H PRN ORAL Itching/Pruritis 07/29/17 02:15 08/28/17 02:14 Docusate Sodium (Colace) 100 mg EVERY 12 HOURS ORAL 07/29/17 09:00 08/28/17 08:59 07/29/17 09:02 Gabapentin (Neurontin) 300 mg THREE TIMES A DAY ORAL 07/29/17 09:00 08/28/17 08:59 07/29/17 13:37 Heparin Sodium (Porcine) (Heparin 5000 units/ml) 5,000 units EVERY 12 HOURS SUBQ 07/29/17 09:00 08/28/17 08:59 07/29/17 09:06 Hydromorphone HCl (Dilaudid) 0.5 mg Q4H PRN IVP pain 4-10 07/29/17 16:00 08/05/17 15:59 Magnesium Citrate (Citrate Of Magnesia) 300 ml ONCE ONCE ORAL 07/29/17 16:00 07/29/17 16:01 Ondansetron HCl (Zofran) 4 mg Q6H PRN IVP Nausea & Vomiting 07/29/17 02:15 08/28/17 02:14 07/29/17 14:42 Pantoprazole (Protonix) 40 mg ACBREAKFAST ORAL 07/29/17 06:30 08/28/17 06:29 07/29/17 07:22 Polyethylene Glycol (Miralax) 17 gm DAILY ORAL 07/29/17 09:00 08/28/17 02:14 07/29/17 09:01 Polyethylene Glycol (Miralax) 238 gm ONCE ONCE ORAL 07/29/17 16:00 07/29/17 16:01 Sennosides (Senokot) 2 tab DAILY ORAL 07/29/17 09:00 08/28/17 08:59 07/29/17 09:03 Sodium Phosphate (Fleet's Sodium Phosl Enema) 133 ml ONCE ONCE RECTAL 07/29/17 23:00 07/29/17 23:01 Assessment/Plan Problem List: (1) Abdominal pain Assessment & Plan: 76F with abdominal discomfort with radiation to pelvis. afebrile, HD Stable, labs okay, CT reviewed, exam with lower abdominal and pelvic tenderness. likely related to UTI she has. describes dysuria. -no acute surgical intervention necessary. -okay for diet -abx -f/u urine culture -will follow with recs thank you for this consultation. ICD Codes: R10.9 - Unspecified abdominal pain SNOMED: [id number] Qualifiers: Qualified Codes: R10.84 - Generalized abdominal pain Status: stable John Panda Jul 29, 2017 16:11
[2017-07-29] MEDS ORDERED: cefTRIAXone 1 GM in D5W 55 ML IVPB SCH (18:00)
--- NOTE | 2017-07-29 18:22 | GI Initial Consult Note ---
HawaKacey Cannon N.P. 07/29/17 1822: History of Present Illness General Date patient seen: Jul 29, 2017 Time patient seen: 18:18 Reason for Hospitalization: General Complaint Referring physician: VARSHA MENDOZA Reason for Consultation: abdominal pain Present Illness HPI 76 year old female with multiple medical comorbidities presented with syncope and noted to have abdominal, pelvic, vaginal pain. pain as cramping discomfort in lower abdomen with radiation to pelvis. similar episodes prior. no n/v/f/ c. feels somewhat bloated. in ED had labs which were okay, CT without acute abnormality, and UA with UTI. surgery called to evaluate for abdominal pain. patient seen, chart reviewed, patient examined. GI consulted for rectal pain / abdominal pain. Pt seen, awake A&Ox4 c/o of generalized pain, abdomen tender to touch with ?voluntary guarding. C/o of severe rectal pain. Pt was scheduled for outpatient EGD/colonoscopy. CT reviewed shows no acute abnormality. Colonic diverticulosis. No evidence of diverticulitis. Basilar pulmonary atelectasis and/or scarring. Minimal degenerative spondylosis incidentally noted. Home Meds Active Scripts Nitrofurantoin Monohyd/M-Cryst* (MACROBID 100 MG*) 100 Mg Capsule, 100 MG ORAL EVERY 12 HOURS for 7 Days, #14 CAP Prov:Galen Mehta M.D. 07/31/17 Reported Medications Docusate Sodium (STOOL SOFTENER) 100 Mg Capsule, 100 MG PO, CAP 07/28/17 Potassium Chloride (POTASSIUM CHLORIDE) 8 Meq Capsule.er, 8 MEQ PO, CAP 07/28/17 Clopidogrel Bisulfate* (PLAVIX*) 75 Mg Tablet, 75 MG ORAL DAILY, TAB 07/28/17 Nitroglycerin (NITROSTAT) 0.4 Mg Tab.subl, 0.4 MG SL Q5M X3 DOSES PRN for CHEST PAIN, #25 TAB 0 Refills 07/28/17 Misoprostol* (CYTOTEC*) 200 Mcg Tablet, 200 MCG PO 4 TAB VAGINAL, TAB 07/28/17 Methylprednisolone (Methylprednisolone*) 4 Mg Tab.ds.pk, 4 MG ORAL .as directed , #1 EA 0 Refills 07/28/17 Lidocaine HCL 2% Jelly* (Lidocaine Jelly 2%*) 5 Ml Jel.pf.kel, 5 ML TOPIC DAILY , ML 07/28/17 Gabapentin* (GABAPENTIN*) 300 Mg Capsule, 300 MG ORAL THREE TIMES A DAY, CAP 0 Refills 07/28/17 Dicyclomine Hcl* (DICYCLOMINE HCL*) 10 Mg Capsule, 10 MG PO QID, CAP 07/28/17 Diclofenac Sodium (DICLO GEL) 1 Each Kit, 1 EACH TP, KIT 07/28/17 Dexlansoprazole (Dexilant) 30 Mg Denny.bp, 30 MG ORAL DAILY, MG 07/28/17 Cholecalciferol (Vitamin D3) (VITAMIN D3) 1,000 Unit Capsule, 1000 UNIT PO, CAP 07/28/17 Atenolol* (TENORMIN*) 50 Mg Tablet, 50 MG ORAL DAILY, TAB 07/28/17 Alendronate Sodium* (FOSAMAX*) 70 Mg Tablet, 70 MG ORAL 1/2 TAB EVERY MORNIN, TAB 07/28/17 Alendronate Sodium* (FOSAMAX*) 70 Mg Tablet, 70 MG ORAL 1 TAB EVERY 7 DAYS. , TAB 07/28/17 Acetaminophen* (TYLENOL EXTRA STRENGTH*) 500 Mg Tablet, 500 MG ORAL Q6H PRN for Mild Pain/Temp > 100.5, TAB 0 Refills 07/28/17 Med list reviewed/reconciled: Yes Allergies: Coded Allergies: MORPHINE (Verified Allergy, Unknown, 07/28/17) PENICILLINS (Verified Allergy, Unknown, 07/28/17) Patient History History Provided By: Patient, Medical Record PMH Narrative Past Medical/Surgical History: (1) Abdominal pain (2) Coronary artery disease (3) Urinary tract infection (4) Syncope Social History: Denies: smoking, alcohol use, drug use, other Review of Systems All Other Systems: negative except mentioned in HPI Physical Exam Vital Signs Date Time Temp Pulse Resp B/P (MAP) Pulse Ox O2 Delivery O2 Flow Rate FiO2 07/28/17 17:59 97.9 79 16 102/70 98 Room Air 97.9 Sp02 EP Interpretation: reviewed, normal Labs Laboratory Tests Test 07/28/17 19:50 07/28/17 20:49 07/29/17 06:55 White Blood Count 10.2 K/UL (4.8-10.8) 8.8 K/UL (4.8-10.8) Red Blood Count 4.47 M/UL (4.20-5.40) 4.17 M/UL (4.20-5.40) L Hemoglobin 13.3 G/DL (12.0-16.0) 12.6 G/DL (12.0-16.0) Hematocrit 39.5 % (37.0-47.0) 37.2 % (37.0-47.0) Mean Corpuscular Volume 88 FL (80-99) 89 FL (80-99) Mean Corpuscular Hemoglobin 29.7 PG (27.0-31.0) 30.1 PG (27.0-31.0) Mean Corpuscular Hemoglobin Concent 33.6 G/DL (32.0-36.0) 33.8 G/DL (32.0-36.0) Red Cell Distribution Width 12.6 % (11.6-14.8) 12.7 % (11.6-14.8) Platelet Count 237 K/UL (150-450) 229 K/UL (150-450) Mean Platelet Volume 7.8 FL (6.5-10.1) 8.1 FL (6.5-10.1) Neutrophils (%) (Auto) 65.2 % (45.0-75.0) 53.1 % (45.0-75.0) Lymphocytes (%) (Auto) 24.4 % (20.0-45.0) 36.0 % (20.0-45.0) Monocytes (%) (Auto) 8.6 % (1.0-10.0) 8.6 % (1.0-10.0) Eosinophils (%) (Auto) 0.8 % (0.0-3.0) 1.5 % (0.0-3.0) Basophils (%) (Auto) 1.0 % (0.0-2.0) 0.8 % (0.0-2.0) Prothrombin Time 10.0 SEC (9.30-11.50) Prothromb Time International Ratio 1.0 (0.9-1.1) Activated Partial Thromboplast Time 24 SEC (23-33) Sodium Level 141 MMOL/L (136-145) 140 MMOL/L (136-145) Potassium Level 3.1 MMOL/L (3.5-5.1) L 3.3 MMOL/L (3.5-5.1) L Chloride Level 104 MMOL/L (98-107) 104 MMOL/L (98-107) Carbon Dioxide Level 26 MMOL/L (21-32) 26 MMOL/L (21-32) Anion Gap 11 mmol/L (5-15) 10 mmol/L (5-15) Blood Urea Nitrogen 19 mg/dL (7-18) H 17 mg/dL (7-18) Creatinine 1.2 MG/DL (0.55-1.30) 1.0 MG/DL (0.55-1.30) Estimat Glomerular Filtration Rate mL/min (>60) mL/min (>60) Glucose Level 107 MG/DL (74-106) H 90 MG/DL (74-106) Calcium Level 9.6 MG/DL (8.5-10.1) 9.1 MG/DL (8.5-10.1) Total Bilirubin 0.4 MG/DL (0.2-1.0) Aspartate Amino Transf (AST/SGOT) 13 U/L (15-37) L Alanine Aminotransferase (ALT/SGPT) 11 U/L (12-78) L Alkaline Phosphatase 71 U/L (46-116) Troponin I 0.000 ng/mL (0.000-0.056) Total Protein 7.6 G/DL (6.4-8.2) Albumin 3.6 G/DL (3.4-5.0) Globulin 4.0 g/dL Albumin/Globulin Ratio 0.9 (1.0-2.7) L Lipase 34 U/L (73-393) L Urine Color Marta Urine Appearance Slightly cloudy Urine pH 5 (4.5-8.0) Urine Specific [place] 1.015 (1.005-1.035) Urine Protein 2+ (NEGATIVE) H Urine Glucose (UA) Negative (NEGATIVE) Urine Ketones 1+ (NEGATIVE) H Urine Occult Blood Negative (NEGATIVE) Urine Nitrite Negative (NEGATIVE) Urine Bilirubin 1+ (NEGATIVE) H Urine Ictotest Positive Urine Urobilinogen 4 MG/DL (0.0-1.0) H Urine Leukocyte Esterase 1+ (NEGATIVE) H Urine RBC 0-2 /HPF (0 - 2) Urine WBC 5-10 /HPF (0 - 2) H Urine Squamous Epithelial Cells Many /LPF (NONE/OCC) H Urine Bacteria Many /HPF (NONE) H Hemoglobin A1c 6.0 % (4.3-6.0) Magnesium Level 1.8 MG/DL (1.8-2.4) Triglycerides Level 112 MG/DL (30-150) Cholesterol Level 136 MG/DL (< 200) LDL Cholesterol 61 mg/dL (<100) HDL Cholesterol 68 MG/DL (40-60) H Cholesterol/HDL Ratio 2.0 (3.3-4.4) L Thyroid Stimulating Hormone (TSH) 0.397 uiU/mL (0.358-3.740) General Appearance: well appearing, no apparent distress, alert, obese Head: normocephalic EENT: PERRL/EOMI, normal ENT inspection Neck: supple Respiratory: normal breath sounds, no respiratory distress Cardiovascular: normal rate Gastrointestinal: normal inspection, non tender, soft, normal bowel sounds, non -distended Rectal: deferred Genitourinary: no CVA tenderness Musculoskeletal: normal inspection, back normal Neurologic: normal inspection, alert, oriented x3, responsive Psychiatric: normal inspection, judgement/insight normal, memory normal Skin: normal inspection, normal color, no rash, warm/dry, palpation normal, well hydrated Lymphatic: normal inspection, no adenopathy Current Medications Current Medications Medications (Trade) Dose Ordered Sig/Ej Route PRN Reason Start Time Stop Time Status Last Admin Dose Admin Acetaminophen (Tylenol) 650 mg Q4H PRN ORAL Mild Pain (Pain Scale 1-3) 07/29/17 02:15 08/28/17 02:14 07/29/17 17:22 Acetaminophen (Tylenol) 650 mg Q4H PRN ORAL fever 07/29/17 02:15 08/28/17 02:14 Atenolol (Tenormin) 50 mg DAILY ORAL 07/29/17 09:00 08/28/17 08:59 Bisacodyl (Dulcolax) 10 mg DAILYPRN PRN RECTAL Constipation 07/29/17 02:15 08/28/17 02:14 Ceftriaxone Sodium 1 gm/ Dextrose 55 ml @ 110 mls/hr Q24H IVPB 07/29/17 18:00 08/05/17 17:59 07/29/17 17:19 Clopidogrel Bisulfate (Plavix) 75 mg DAILY ORAL 07/29/17 09:00 08/28/17 08:59 07/29/17 09:01 Dextrose (Dextrose 50%) 25 ml STAT PRN IV Hypoglycemia 07/29/17 02:15 08/28/17 02:14 Dextrose (Dextrose 50%) 50 ml STAT PRN IV Hypoglycemia 07/29/17 02:15 08/28/17 02:14 Dextrose/ Electrolytes 1,000 ml @ 75 mls/hr [id number] IV 07/29/17 14:30 08/28/17 14:29 07/29/17 13:37 Dicyclomine HCl (Bentyl) 10 mg QID ORAL 07/29/17 09:00 08/28/17 08:59 07/29/17 17:20 Diphenhydramine HCl (Benadryl) 25 mg Q6H PRN ORAL Itching/Pruritis 07/29/17 02:15 08/28/17 02:14 Docusate Sodium (Colace) 100 mg EVERY 12 HOURS ORAL 07/29/17 09:00 08/28/17 08:59 07/29/17 09:02 Gabapentin (Neurontin) 300 mg THREE TIMES A DAY ORAL 07/29/17 09:00 08/28/17 08:59 07/29/17 17:20 Heparin Sodium (Porcine) (Heparin 5000 units/ml) 5,000 units EVERY 12 HOURS SUBQ 07/29/17 09:00 08/28/17 08:59 07/29/17 09:06 Hydromorphone HCl (Dilaudid) 0.5 mg Q4H PRN IVP pain 4-10 07/29/17 16:00 08/05/17 15:59 Ondansetron HCl (Zofran) 4 mg Q6H PRN IVP Nausea & Vomiting 07/29/17 02:15 08/28/17 02:14 07/29/17 14:42 Pantoprazole (Protonix) 40 mg ACBREAKFAST ORAL 07/29/17 06:30 08/28/17 06:29 07/29/17 07:22 Polyethylene Glycol (Miralax) 17 gm DAILY ORAL 07/29/17 09:00 08/28/17 02:14 07/29/17 09:01 Sennosides (Senokot) 2 tab DAILY ORAL 07/29/17 09:00 08/28/17 08:59 07/29/17 09:03 Sodium Phosphate (Fleet's Sodium Phosl Enema) 133 ml ONCE ONCE RECTAL 07/29/17 23:00 07/29/17 23:01 GI: Plan Problems: (1) Rectal pain (2) Abdominal pain Plan CT AP reviewed. EGD/colonoscopy scheduled for tomorrow. - NPO @ [facility]. - hold all blood thinners tonight. ppi pain mgmt fu labs will follow with additional recs Discussed with Dr. Phillips. Thank you for this patient referral, we will follow. GUY PHILLIPS 08/03/17 0654: History of Present Illness General Reason for Hospitalization: General Complaint Present Illness Home Meds Active Scripts Nitrofurantoin Monohyd/M-Cryst* (MACROBID 100 MG*) 100 Mg Capsule, 100 MG ORAL EVERY 12 HOURS for 7 Days, #14 CAP Prov:Galen Mehta M.D. 07/31/17 Reported Medications Docusate Sodium (STOOL SOFTENER) 100 Mg Capsule, 100 MG PO, CAP 07/28/17 Potassium Chloride (POTASSIUM CHLORIDE) 8 Meq Capsule.er, 8 MEQ PO, CAP 07/28/17 Clopidogrel Bisulfate* (PLAVIX*) 75 Mg Tablet, 75 MG ORAL DAILY, TAB 07/28/17 Nitroglycerin (NITROSTAT) 0.4 Mg Tab.subl, 0.4 MG SL Q5M X3 DOSES PRN for CHEST PAIN, #25 TAB 0 Refills 07/28/17 Misoprostol* (CYTOTEC*) 200 Mcg Tablet, 200 MCG PO 4 TAB VAGINAL, TAB 07/28/17 Methylprednisolone (Methylprednisolone*) 4 Mg Tab.ds.pk, 4 MG ORAL .as directed , #1 EA 0 Refills 07/28/17 Lidocaine HCL 2% Jelly* (Lidocaine Jelly 2%*) 5 Ml Jel.pf.kel, 5 ML TOPIC DAILY , ML 07/28/17 Gabapentin* (GABAPENTIN*) 300 Mg Capsule, 300 MG ORAL THREE TIMES A DAY, CAP 0 Refills 07/28/17 Dicyclomine Hcl* (DICYCLOMINE HCL*) 10 Mg Capsule, 10 MG PO QID, CAP 07/28/17 Diclofenac Sodium (DICLO GEL) 1 Each Kit, 1 EACH TP, KIT 07/28/17 Dexlansoprazole (Dexilant) 30 Mg Denny.bp, 30 MG ORAL DAILY, MG 07/28/17 Cholecalciferol (Vitamin D3) (VITAMIN D3) 1,000 Unit Capsule, 1000 UNIT PO, CAP 07/28/17 Atenolol* (TENORMIN*) 50 Mg Tablet, 50 MG ORAL DAILY, TAB 07/28/17 Alendronate Sodium* (FOSAMAX*) 70 Mg Tablet, 70 MG ORAL 1/2 TAB EVERY MORNIN, TAB 07/28/17 Alendronate Sodium* (FOSAMAX*) 70 Mg Tablet, 70 MG ORAL 1 TAB EVERY 7 DAYS. , TAB 07/28/17 Acetaminophen* (TYLENOL EXTRA STRENGTH*) 500 Mg Tablet, 500 MG ORAL Q6H PRN for Mild Pain/Temp > 100.5, TAB 0 Refills 07/28/17 Allergies: Coded Allergies: MORPHINE (Verified Allergy, Unknown, 07/28/17) PENICILLINS (Verified Allergy, Unknown, 07/28/17) GI: Plan Plan The patient was seen and examined at bedside and all new and available data was reviewed in the patients chart. I agree with the above findings, impression and plan. (Patient seen earlier today. Signature stamp does not reflect patient encounter time.). - MD [facility] Davsi Curiel Jul 29, 2017 18:22 GUY PHILLIPS August 03, 2017 06:54
[2017-07-29 20:00] VITALS: BP 99/64
[2017-07-29] MEDS ORDERED: Fleet's Enema 133ml RECTAL ONE (23:00)
[2017-07-30] VITALS: BP 102/66
[2017-07-30] MEDS: D5 1/2NS w/KCl 20mEq 1,000 ML IV SCH ×2 (03:43→18:47)
[2017-07-30 04:00] VITALS: BP 111/59
--- NOTE | 2017-07-30 04:00 | Consultation ---
DATE OF CONSULTATION: 07/29/2017 NOTE: POOR AUDIO CARDIOLOGY CONSULTATION CONSULTING PHYSICIAN: Parish Chase M.D. REFERRING PHYSICIAN: Anthony Aaron M.D. REASON FOR CONSULTATION: Syncope in a patient with history of coronary artery bypass graft. HISTORY OF PRESENT ILLNESS: The patient is a 76-year-old lady with history of hypertension, history of coronary artery bypass graft at [facility] who used to be under the care of Dr. Peter Hernandez, presented to the emergency room for generalized weakness and syncopal episodes. That started after patient having abdominal pain radiating to her pelvis. The pain was crampy and she had also nausea and vomiting. The blood pressure in the ER was 102/70 with a pulse of 79. The patient was admitted and a Cardiology consultation was obtained for further evaluation and management. PAST MEDICAL HISTORY: As mentioned above. FAMILY HISTORY: Noncontributory. SOCIAL HISTORY: She lives at home. Does not smoke or drink alcohol. REVIEW OF SYSTEMS: Review of Systems was performed and was negative other than what was mentioned in the history of present illness. PHYSICAL EXAMINATION: VITAL SIGNS: Blood pressure is 107/61, pulse 71, respirations 18, and temperature 97.7. HEAD AND NECK: Showed no JVD. LUNGS: Clear. CARDIOVASCULAR: Regular S1 and S2 with no gallop or murmur. ABDOMEN: Distended and generally tender. A sternotomy scar in chest is intact. EXTREMITIES: Trace pitting edema. LABORATORY AND DIAGNOSTIC DATA: Labs show white count of 8.8, hemoglobin 12.7, and hematocrit 37.2. Sodium 140, potassium 3.3, BUN of 17, creatinine of 1, and glucose of 90. HDL is 68. is 34. TSH 0.397. Troponin is negative. ASSESSMENT AND PLAN: 1. Syncopal episodes. We will completely rule out myocardial infarction protocol. 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 We echocardiogram as well as a carotid duplex syncopal episodes may be secondary to dehydration due to nausea and vomiting. 2. History of coronary artery bypass graft chest pain, completely rule out myocardial infarction protocol. The patient is on atenolol 50 mg daily and Plavix 75 mg daily, that will be continued at this time. We will hold off on statins. 3. Abdominal pain and nausea and vomiting. Abdominal and pelvis CT scan showed colonic diverticulosis, but no evidence of diverticulitis with no acute abnormality. Thank you very much, Dr. Aaron, for allowing me to participate in the care of this patient. Please do not hesitate to contact me for any questions regarding my evaluation. Parish Chase M.D. DR: Ba JOB#: [id number] CC:
[2017-07-30 08:00] VITALS: BP 144/74
[2017-07-30 08:06] LABS: ANION GAP 6 mmol/L (5-15); BLOOD UREA NITROGEN 12 mg/dL (7-18); CALCIUM 8.8 MG/DL (8.5-10.1); CARBON DIOXIDE 30 MMOL/L (21-32); CHLORIDE 105 MMOL/L (98-107); CREATININE 0.9 MG/DL (0.55-1.30); POTASSIUM 3.3 MMOL/L (3.5-5.1); SODIUM 141 MMOL/L (136-145)
[2017-07-30 08:11] LABS: BASOPHILS % (AUTO) 0.9 % (0.0-2.0); EOSINOPHILS % (AUTO) 2.1 % (0.0-3.0); HEMATOCRIT 37.2 % (37.0-47.0); HEMOGLOBIN 12.6 G/DL (12.0-16.0); LYMPHOCYTES % (AUTO) 38.4 % (20.0-45.0); MEAN CORPUSCULAR VOLUME 90 FL (80-99); MONOCYTES % (AUTO) 7.9 % (1.0-10.0); NEUTROPHILS % (AUTO) 50.7 % (45.0-75.0); PLATELET COUNT 216 K/UL (150-450); RED BLOOD COUNT 4.15 M/UL (4.20-5.40); WHITE BLOOD COUNT 6.8 K/UL (4.8-10.8)
[2017-07-30] MEDS: Docusate 100mg cap ORAL SCH ×2 (09:00→20:39)
[2017-07-30] MEDS: Miralax 17gm pkt ORAL SCH (09:00)
[2017-07-30] MEDS: Sennosides 8.6mg ORAL SCH (09:00)
[2017-07-30] MEDS: Dicyclomine 10mg Cap ORAL SCH ×4 (09:38→20:39)
[2017-07-30] MEDS: Heparin 5000 units/ml inj SUBQ SCH ×2 (09:44→20:41)
--- NOTE | 2017-07-30 11:39 | GI Progress Note ---
Assessment/Plan Problems: (1) Abdominal pain ICD Codes: R10.9 - Unspecified abdominal pain SNOMED: 09149382 Qualifiers: Qualified Codes: R10.84 - Generalized abdominal pain (2) Rectal pain ICD Codes: K62.89 - Other specified diseases of anus and rectum SNOMED: 82593995 Status: stable Status Narrative Discussed with Dr. Gallegos. Assessment/Plan CT AP reviewed. EGD/colonoscopy cancelled, requires cardiac work up. adv diet ppi pain mgmt fu labs will follow with GI procedures if necessary The patient was seen and examined at bedside and all new and available data was reviewed in the patients chart. I agree with the above findings, impression and plan. (Patient seen earlier today. Signature stamp does not reflect patient encounter time.). - Sudeep Gallegos MD Subjective Subjective abdominal pain improved, rectal pain less now c/o of HARKINS Objective Last 24 Hour Vital Signs Date Time Temp Pulse Resp B/P (MAP) Pulse Ox O2 Delivery O2 Flow Rate FiO2 07/30/17 11:14 97.8 07/30/17 09:40 63 109/57 07/30/17 09:38 97.8 07/30/17 08:00 98.6 62 20 144/74 98 Room Air 98.6 07/30/17 08:00 58 07/30/17 04:00 97.8 60 20 111/59 96 Room Air 97.8 07/30/17 04:00 71 07/30/17 00:00 98.0 57 18 102/66 96 Room Air 98.0 07/30/17 00:00 74 07/29/17 20:00 97.7 60 20 99/64 96 Room Air 97.7 07/29/17 20:00 70 07/29/17 16:00 54 07/29/17 16:00 97.7 53 19 103/57 96 Room Air 97.7 07/29/17 12:00 97.9 76 20 100/66 98 Room Air 97.9 07/29/17 12:00 71 Intake and Output 07/29/17 07/30/17 19:00 07:00 Intake Total 850 ml 0 ml Output Total 400 ml Balance 450 ml 0 ml Intake Oral 850 ml 0 ml Output Urine Total 400 ml # Voids 1 2 # Bowel Movements 6 Laboratory Tests Test 07/30/17 07:25 White Blood Count 6.8 K/UL (4.8-10.8) Red Blood Count 4.15 M/UL (4.20-5.40) L Hemoglobin 12.6 G/DL (12.0-16.0) Hematocrit 37.2 % (37.0-47.0) Mean Corpuscular Volume 90 FL (80-99) Mean Corpuscular Hemoglobin 30.3 PG (27.0-31.0) Mean Corpuscular Hemoglobin Concent 33.8 G/DL (32.0-36.0) Red Cell Distribution Width 13.0 % (11.6-14.8) Platelet Count 216 K/UL (150-450) Mean Platelet Volume 8.2 FL (6.5-10.1) Neutrophils (%) (Auto) 50.7 % (45.0-75.0) Lymphocytes (%) (Auto) 38.4 % (20.0-45.0) Monocytes (%) (Auto) 7.9 % (1.0-10.0) Eosinophils (%) (Auto) 2.1 % (0.0-3.0) Basophils (%) (Auto) 0.9 % (0.0-2.0) Prothrombin Time 10.4 SEC (9.30-11.50) Prothromb Time International Ratio 1.0 (0.9-1.1) Activated Partial Thromboplast Time 26 SEC (23-33) Sodium Level 141 MMOL/L (136-145) Potassium Level 3.3 MMOL/L (3.5-5.1) L Chloride Level 105 MMOL/L (98-107) Carbon Dioxide Level 30 MMOL/L (21-32) Anion Gap 6 mmol/L (5-15) Blood Urea Nitrogen 12 mg/dL (7-18) Creatinine 0.9 MG/DL (0.55-1.30) Estimat Glomerular Filtration Rate mL/min (>60) Glucose Level 104 MG/DL (74-106) Calcium Level 8.8 MG/DL (8.5-10.1) Troponin I 0.000 ng/mL (0.000-0.056) Vitamin B12 Level 528 PG/ML (193-986) Folate 10.4 NG/ML (8.6-58.9) Microbiology Date/Time Source Procedure Growth Status 07/29/17 17:40 Urine,Clean Catch Urine Culture - Preliminary NO GROWTH Resulted Height (Feet): 5 Height (Inches): 5.00 Weight (Pounds): 192 General Appearance: WD/WN, no apparent distress, alert, obese Cardiovascular: normal rate Respiratory/Chest: normal breath sounds, no respiratory distress Abdominal Exam: normal bowel sounds, non tender, soft Extremities: normal range of motion, non-tender Kacey Shaikh NKarl Jul 30, 2017 11:39 GUY GALLEGOS August 03, 2017 06:55
--- NOTE | 2017-07-30 11:54 | General Surgery Progress Note ---
General Surgery-Progress Note Subjective Symptoms: improved Additional Comments abdominal pain improved. no n/v/f/c. labs reviewed. on abx. Objective Last 24 Hour Vital Signs Date Time Temp Pulse Resp B/P (MAP) Pulse Ox O2 Delivery O2 Flow Rate FiO2 07/30/17 11:14 97.8 07/30/17 09:40 63 109/57 07/30/17 09:38 97.8 07/30/17 08:00 98.6 62 20 144/74 98 Room Air 98.6 07/30/17 08:00 58 07/30/17 04:00 97.8 60 20 111/59 96 Room Air 97.8 07/30/17 04:00 71 07/30/17 00:00 98.0 57 18 102/66 96 Room Air 98.0 07/30/17 00:00 74 07/29/17 20:00 97.7 60 20 99/64 96 Room Air 97.7 07/29/17 20:00 70 07/29/17 16:00 54 07/29/17 16:00 97.7 53 19 103/57 96 Room Air 97.7 07/29/17 12:00 97.9 76 20 100/66 98 Room Air 97.9 07/29/17 12:00 71 I&O Intake and Output 07/29/17 07/30/17 19:00 07:00 Intake Total 850 ml 0 ml Output Total 400 ml Balance 450 ml 0 ml Intake Oral 850 ml 0 ml Output Urine Total 400 ml # Voids 1 2 # Bowel Movements 6 Cardiovascular: RSR Respiratory: clear Abdomen: soft, distended, non-tender, present bowel sounds Extremities: no cyanosis Laboratory Tests Test 07/30/17 07:25 07/30/17 07:35 White Blood Count 6.8 K/UL (4.8-10.8) Red Blood Count 4.15 M/UL (4.20-5.40) L Hemoglobin 12.6 G/DL (12.0-16.0) Hematocrit 37.2 % (37.0-47.0) Mean Corpuscular Volume 90 FL (80-99) Mean Corpuscular Hemoglobin 30.3 PG (27.0-31.0) Mean Corpuscular Hemoglobin Concent 33.8 G/DL (32.0-36.0) Red Cell Distribution Width 13.0 % (11.6-14.8) Platelet Count 216 K/UL (150-450) Mean Platelet Volume 8.2 FL (6.5-10.1) Neutrophils (%) (Auto) 50.7 % (45.0-75.0) Lymphocytes (%) (Auto) 38.4 % (20.0-45.0) Monocytes (%) (Auto) 7.9 % (1.0-10.0) Eosinophils (%) (Auto) 2.1 % (0.0-3.0) Basophils (%) (Auto) 0.9 % (0.0-2.0) Prothrombin Time 10.4 SEC (9.30-11.50) Prothromb Time International Ratio 1.0 (0.9-1.1) Activated Partial Thromboplast Time 26 SEC (23-33) Sodium Level 141 MMOL/L (136-145) Potassium Level 3.3 MMOL/L (3.5-5.1) L Chloride Level 105 MMOL/L (98-107) Carbon Dioxide Level 30 MMOL/L (21-32) Anion Gap 6 mmol/L (5-15) Blood Urea Nitrogen 12 mg/dL (7-18) Creatinine 0.9 MG/DL (0.55-1.30) Estimat Glomerular Filtration Rate mL/min (>60) Glucose Level 104 MG/DL (74-106) Calcium Level 8.8 MG/DL (8.5-10.1) Troponin I 0.000 ng/mL (0.000-0.056) Vitamin B12 Level 528 PG/ML (193-986) Folate 10.4 NG/ML (8.6-58.9) Vitamin D 25-Hydroxy Pending 25-Hydroxy Vitamin D2 Pending 25-Hydroxy Vitamin D3 Pending Plan Problems: (1) Abdominal pain Assessment & Plan: 76F with abdominal discomfort with radiation to pelvis. afebrile, HD Stable, labs okay, CT reviewed, exam with lower abdominal and pelvic tenderness. likely related to UTI she has. describes dysuria. -no acute surgical intervention necessary. -okay for diet -abx -f/u urine culture -will follow with recs thank you for this consultation. John Panda Jul 30, 2017 11:54
[2017-07-30 12:00] VITALS: BP 144/74
--- NOTE | 2017-07-30 14:56 | Consultation ---
History of Present Illness General Date patient seen: Jul 29, 2017 Chief Complaint: General Complaint Referring physician: VARSHA MENDOZA Reason for Consultation: abdominal pain Present Illness HPI 76-year-old female with history of hypertension, coronary artery bypass graft presented to the emergency room for generalized weakness and syncopal episodes. The pt was c/o anxiety and fatigue. the pt does not endorse depressive, manic nor psychotic sxs. No si/hi. this is the late entry. Allergies: Coded Allergies: MORPHINE (Verified Allergy, Unknown, 07/28/17) PENICILLINS (Verified Allergy, Unknown, 07/28/17) Medication History Scheduled Alendronate Sodium* (Fosamax*), 70 MG ORAL 1 TAB EVERY 7 DAYS. , (Reported) Alendronate Sodium* (Fosamax*), 70 MG ORAL 1/2 TAB EVERY MORNIN, (Reported) Atenolol* (Tenormin*), 50 MG ORAL DAILY, (Reported) Clopidogrel Bisulfate* (Plavix*), 75 MG ORAL DAILY, (Reported) Dexlansoprazole (Dexilant), 30 MG ORAL DAILY, (Reported) Dicyclomine Hcl* (Dicyclomine Hcl*), 10 MG PO QID, (Reported) Gabapentin* (Gabapentin*), 300 MG ORAL THREE TIMES A DAY, (Reported) Lidocaine HCL 2% Jelly* (Lidocaine Jelly 2%*), 5 ML TOPIC DAILY, (Reported) Methylprednisolone (Methylprednisolone*), 4 MG ORAL .as directed, (Reported) Misoprostol* (Cytotec*), 200 MCG PO 4 TAB VAGINAL, (Reported) Scheduled PRN Acetaminophen* (Tylenol Extra Strength*), 500 MG ORAL Q6H PRN for Mild Pain/ Temp > 100.5, (Reported) Nitroglycerin (Nitrostat), 0.4 MG SL Q5M X3 DOSES PRN for CHEST PAIN, (Reported) Miscellaneous Medications Cholecalciferol (Vitamin D3) (Vitamin D3), 1,000 UNIT PO, (Reported) Diclofenac Sodium (Diclo Gel), 1 EACH TP, (Reported) Docusate Sodium (Stool Softener), 100 MG PO, (Reported) Potassium Chloride (Potassium Chloride), 8 MEQ PO, (Reported) Patient History Limited by: medical condition History Provided By: Patient, Medical Record, PMD Healthcare decision maker Resuscitation status Full Code Advanced Directive on File No Past Medical/Surgical History Past Medical/Surgical History: (1) Coronary artery disease (2) Urinary tract infection (3) Abdominal pain (4) Rectal pain (5) lives at home (6) Degenerative disc disease (7) Pseudogout (8) Chondrocalcinosis (9) Osteoporosis (10) Fibromyalgia (11) Osteoarthritis (12) HTN (hypertension) (13) CVA (cerebral vascular accident) (14) CAD s/p CABG (15) UTI (urinary tract infection) (16) Hypokalemia (17) Syncope Review of Systems Psychiatric: Reports: see HPI, prior hx, anxiety, depressed feelings, emotional problems Physical Exam General Appearance: no apparent distress, alert Neurologic: oriented x 3, responsive, normal mood/affect Last 24 Hour Vital Signs Date Time Temp Pulse Resp B/P (MAP) Pulse Ox O2 Delivery O2 Flow Rate FiO2 07/30/17 11:14 97.8 07/30/17 09:40 63 109/57 07/30/17 09:38 97.8 07/30/17 08:00 98.6 62 20 144/74 98 Room Air 98.6 07/30/17 08:00 58 07/30/17 04:00 97.8 60 20 111/59 96 Room Air 97.8 07/30/17 04:00 71 07/30/17 00:00 98.0 57 18 102/66 96 Room Air 98.0 07/30/17 00:00 74 07/29/17 20:00 97.7 60 20 99/64 96 Room Air 97.7 07/29/17 20:00 70 07/29/17 16:00 54 07/29/17 16:00 97.7 53 19 103/57 96 Room Air 97.7 Intake and Output 07/29/17 07/30/17 19:00 07:00 Intake Total 850 ml 0 ml Output Total 400 ml Balance 450 ml 0 ml Intake Oral 850 ml 0 ml Output Urine Total 400 ml # Voids 1 2 # Bowel Movements 6 Laboratory Tests Test 07/30/17 07:25 07/30/17 07:35 White Blood Count 6.8 K/UL (4.8-10.8) Red Blood Count 4.15 M/UL (4.20-5.40) L Hemoglobin 12.6 G/DL (12.0-16.0) Hematocrit 37.2 % (37.0-47.0) Mean Corpuscular Volume 90 FL (80-99) Mean Corpuscular Hemoglobin 30.3 PG (27.0-31.0) Mean Corpuscular Hemoglobin Concent 33.8 G/DL (32.0-36.0) Red Cell Distribution Width 13.0 % (11.6-14.8) Platelet Count 216 K/UL (150-450) Mean Platelet Volume 8.2 FL (6.5-10.1) Neutrophils (%) (Auto) 50.7 % (45.0-75.0) Lymphocytes (%) (Auto) 38.4 % (20.0-45.0) Monocytes (%) (Auto) 7.9 % (1.0-10.0) Eosinophils (%) (Auto) 2.1 % (0.0-3.0) Basophils (%) (Auto) 0.9 % (0.0-2.0) Prothrombin Time 10.4 SEC (9.30-11.50) Prothromb Time International Ratio 1.0 (0.9-1.1) Activated Partial Thromboplast Time 26 SEC (23-33) Sodium Level 141 MMOL/L (136-145) Potassium Level 3.3 MMOL/L (3.5-5.1) L Chloride Level 105 MMOL/L (98-107) Carbon Dioxide Level 30 MMOL/L (21-32) Anion Gap 6 mmol/L (5-15) Blood Urea Nitrogen 12 mg/dL (7-18) Creatinine 0.9 MG/DL (0.55-1.30) Estimat Glomerular Filtration Rate mL/min (>60) Glucose Level 104 MG/DL (74-106) Calcium Level 8.8 MG/DL (8.5-10.1) Troponin I 0.000 ng/mL (0.000-0.056) Vitamin B12 Level 528 PG/ML (193-986) Folate 10.4 NG/ML (8.6-58.9) Vitamin D 25-Hydroxy Pending 25-Hydroxy Vitamin D2 Pending 25-Hydroxy Vitamin D3 Pending Microbiology Date/Time Source Procedure Growth Status 07/29/17 17:40 Urine,Clean Catch Urine Culture - Preliminary NO GROWTH Resulted Height (Feet): 5 Height (Inches): 5.00 Weight (Pounds): 192 Medications Current Medications Medications (Trade) Dose Ordered Sig/Ej Route PRN Reason Start Time Stop Time Status Last Admin Dose Admin Acetaminophen (Tylenol) 650 mg Q4H PRN ORAL Mild Pain (Pain Scale 1-3) 07/29/17 02:15 08/28/17 02:14 07/30/17 09:38 Acetaminophen (Tylenol) 650 mg Q4H PRN ORAL fever 07/29/17 02:15 08/28/17 02:14 Atenolol (Tenormin) 50 mg DAILY ORAL 07/29/17 09:00 08/28/17 08:59 07/30/17 09:40 Bisacodyl (Dulcolax) 10 mg DAILYPRN PRN RECTAL Constipation 07/29/17 02:15 08/28/17 02:14 Ceftriaxone Sodium 1 gm/ Dextrose 55 ml @ 110 mls/hr Q24H IVPB 07/29/17 18:00 08/05/17 17:59 07/29/17 17:19 Clopidogrel Bisulfate (Plavix) 75 mg DAILY ORAL 07/29/17 09:00 08/28/17 08:59 07/30/17 09:37 Dextrose (Dextrose 50%) 25 ml STAT PRN IV Hypoglycemia 07/29/17 02:15 08/28/17 02:14 Dextrose (Dextrose 50%) 50 ml STAT PRN IV Hypoglycemia 07/29/17 02:15 08/28/17 02:14 Dextrose/ Electrolytes 1,000 ml @ 75 mls/hr [id number] IV 07/29/17 14:30 08/28/17 14:29 07/30/17 03:43 Dicyclomine HCl (Bentyl) 10 mg QID ORAL 07/29/17 09:00 08/28/17 08:59 07/30/17 12:44 Diphenhydramine HCl (Benadryl) 25 mg Q6H PRN ORAL Itching/Pruritis 07/29/17 02:15 08/28/17 02:14 Docusate Sodium (Colace) 100 mg EVERY 12 HOURS ORAL 07/29/17 09:00 08/28/17 08:59 07/29/17 20:40 Gabapentin (Neurontin) 300 mg THREE TIMES A DAY ORAL 07/29/17 09:00 08/28/17 08:59 07/30/17 12:44 Heparin Sodium (Porcine) (Heparin 5000 units/ml) 5,000 units EVERY 12 HOURS SUBQ 07/29/17 09:00 08/28/17 08:59 07/30/17 09:44 Hydromorphone HCl (Dilaudid) 0.5 mg Q4H PRN IVP pain 4-10 07/29/17 16:00 08/05/17 15:59 07/30/17 03:27 Ondansetron HCl (Zofran) 4 mg Q6H PRN IVP Nausea & Vomiting 07/29/17 02:15 08/28/17 02:14 07/29/17 20:31 Pantoprazole (Protonix) 40 mg ACBREAKFAST ORAL 07/29/17 06:30 08/28/17 06:29 07/30/17 07:04 Polyethylene Glycol (Miralax) 17 gm DAILY ORAL 07/29/17 09:00 08/28/17 02:14 07/29/17 09:01 Sennosides (Senokot) 2 tab DAILY ORAL 07/29/17 09:00 08/28/17 08:59 07/29/17 09:03 Assessment/Plan Status: stable Assessment/Plan anxiety d/o Neurontin 300mg tid which targets both anxiety and neuropathy Wilmer Diego M.D. Jul 30, 2017 14:56
--- NOTE | 2017-07-30 15:05 | General Progress Note ---
Assessment/Plan Status: stable Assessment/Plan anxiety d/o Neurontin 300mg tid provided ro/st Subjective Date patient seen: Jul 30, 2017 Neurologic/Psychiatric: Reports: anxiety Allergies: Coded Allergies: MORPHINE (Verified Allergy, Unknown, 07/28/17) PENICILLINS (Verified Allergy, Unknown, 07/28/17) Objective Last 24 Hour Vital Signs Date Time Temp Pulse Resp B/P (MAP) Pulse Ox O2 Delivery O2 Flow Rate FiO2 07/30/17 11:14 97.8 07/30/17 09:40 63 109/57 07/30/17 09:38 97.8 07/30/17 08:00 98.6 62 20 144/74 98 Room Air 98.6 07/30/17 08:00 58 07/30/17 04:00 97.8 60 20 111/59 96 Room Air 97.8 07/30/17 04:00 71 07/30/17 00:00 98.0 57 18 102/66 96 Room Air 98.0 07/30/17 00:00 74 07/29/17 20:00 97.7 60 20 99/64 96 Room Air 97.7 07/29/17 20:00 70 07/29/17 16:00 54 07/29/17 16:00 97.7 53 19 103/57 96 Room Air 97.7 Intake and Output 07/29/17 07/30/17 19:00 07:00 Intake Total 850 ml 0 ml Output Total 400 ml Balance 450 ml 0 ml Intake Oral 850 ml 0 ml Output Urine Total 400 ml # Voids 1 2 # Bowel Movements 6 Laboratory Tests 07/30/17 07:25: White Blood Count 6.8, Red Blood Count 4.15L, Hemoglobin 12.6, Hematocrit 37.2, Mean Corpuscular Volume 90, Mean Corpuscular Hemoglobin 30.3, Mean Corpuscular Hemoglobin Concent 33.8, Red Cell Distribution Width 13.0, Platelet Count 216, Mean Platelet Volume 8.2, Neutrophils (%) (Auto) 50.7, Lymphocytes (%) (Auto) 38.4, Monocytes (%) (Auto) 7.9, Eosinophils (%) (Auto) 2.1, Basophils (%) (Auto ) 0.9, Prothrombin Time 10.4, Prothromb Time International Ratio 1.0, Activated Partial Thromboplast Time 26, Sodium Level 141, Potassium Level 3.3L, Chloride Level 105, Carbon Dioxide Level 30, Anion Gap 6, Blood Urea Nitrogen 12, Creatinine 0.9, Estimat Glomerular Filtration Rate , Glucose Level 104, Calcium Level 8.8, Troponin I 0.000, Vitamin B12 Level 528, Folate 10.4 07/30/17 07:35: Vitamin D 25-Hydroxy [Pending], 25-Hydroxy Vitamin D2 [Pending], 25-Hydroxy Vitamin D3 [Pending] Height (Feet): 5 Height (Inches): 5.00 Weight (Pounds): 192 General Appearance: no apparent distress, alert Neurologic: alert, oriented x 3, responsive Wilmer Diego M.D. Jul 30, 2017 15:05
--- NOTE | 2017-07-30 15:50 | General Progress Note ---
Assessment/Plan Problem List: (1) Syncope ICD Codes: R55 - Syncope and collapse SNOMED: 046988483 Qualifiers: Qualified Codes: R55 - Syncope and collapse (2) Hypokalemia ICD Codes: E87.6 - Hypokalemia SNOMED: 12872753 (3) Abdominal pain ICD Codes: R10.9 - Unspecified abdominal pain SNOMED: 89739509 Qualifiers: Qualified Codes: R10.84 - Generalized abdominal pain (4) UTI (urinary tract infection) ICD Codes: N39.0 - Urinary tract infection, site not specified SNOMED: 33052810 (5) CAD s/p CABG (6) CVA (cerebral vascular accident) ICD Codes: I63.9 - Cerebral infarction, unspecified SNOMED: 925922921 (7) HTN (hypertension) ICD Codes: I10 - Essential (primary) hypertension SNOMED: 70086223 Status: stable Assessment/Plan Syncope appears to be vasovagal type given occurred while getting blood drawn and in setting of pain Abd pain possibly 2/2 UTI Cardiology consulted for syncope eval Trop neg. EKG w/o acute ST/T changes Check TTE--normal EF Check carotid duplex--unremarkable F/u TSH, A1C, B12/folate, Vit D GI consulted given abd pain EGD and colonoscopy was planned for today but now cancelled Advance to regular diet per GI mIVFs w/ KCl Monitor lytes and replete Surgery eval--no acute intervention needed Empiric ceftriaxone for UTI (07/29-) s/p levaquin in ED on 07/28 F/u urine culture Pain control, bowel regimen, supportive care Pt currently requiring IV narcotics for pain control. Wean off as tolerated PT eval Possible d/c tomorrow if pain controlled DVT Prophylaxis: SCD, HSQ Code Status: Full Hospital Classification Declaration: Based on this initial evaluation, and depending on the patient's clinical course, I anticipate that this patient will require hospitalization for 1-2 days for syncope eval, intractable abd pain and close respiratory/hemodynamic monitoring. Disposition: Once the patient is stable to leave the hospital, I anticipate the patient will likely be discharged to the following environment: home with HH vs SNF I spent 42 minutes on this patient's case, and >50% were dedicated to counseling and/or care coordination. Discussed with patient/family, nursing staff, SW/CM, GI, surgery, cardiology regarding clinical status, treatment course, and disposition planning. D/w GI and surgery regarding abd pain, abx. D/ w cardiology re syncope eval. Medical decision complexity: high Pt requiring IV narcotics for pain control Discussion w/ cardiology re syncope eval Discussion w/ GI re EGD and colo Time of note may not reflect time of encounter. Subjective Date patient seen: Jul 30, 2017 Time patient seen: 15:50 ROS Limited/Unobtainable: No Constitutional: Reports: malaise, weakness HEENT: Reports: no symptoms Cardiovascular: Reports: no symptoms Respiratory: Reports: no symptoms Gastrointestinal/Abdominal: Reports: abdominal pain Genitourinary: Reports: burning, pain Neurologic/Psychiatric: Reports: no symptoms Endocrine: Reports: no symptoms Hematologic/Lymphatic: Reports: no symptoms Allergies: Coded Allergies: MORPHINE (Verified Allergy, Unknown, 07/28/17) PENICILLINS (Verified Allergy, Unknown, 07/28/17) Subjective No acute o/n events EGD/colo cancelled today Pt notes some improvement in abd pain. Nausea resolved. Tolerating PO. C/o burning pain when urinating Objective Last 24 Hour Vital Signs Date Time Temp Pulse Resp B/P (MAP) Pulse Ox O2 Delivery O2 Flow Rate FiO2 07/30/17 11:14 97.8 07/30/17 09:40 63 109/57 07/30/17 09:38 97.8 07/30/17 08:00 98.6 62 20 144/74 98 Room Air 98.6 07/30/17 08:00 58 07/30/17 04:00 97.8 60 20 111/59 96 Room Air 97.8 07/30/17 04:00 71 07/30/17 00:00 98.0 57 18 102/66 96 Room Air 98.0 07/30/17 00:00 74 07/29/17 20:00 97.7 60 20 99/64 96 Room Air 97.7 07/29/17 20:00 70 07/29/17 16:00 54 07/29/17 16:00 97.7 53 19 103/57 96 Room Air 97.7 Intake and Output 07/29/17 07/30/17 19:00 07:00 Intake Total 850 ml 0 ml Output Total 400 ml Balance 450 ml 0 ml Intake Oral 850 ml 0 ml Output Urine Total 400 ml # Voids 1 2 # Bowel Movements 6 Laboratory Tests 07/30/17 07:25: White Blood Count 6.8, Red Blood Count 4.15L, Hemoglobin 12.6, Hematocrit 37.2, Mean Corpuscular Volume 90, Mean Corpuscular Hemoglobin 30.3, Mean Corpuscular Hemoglobin Concent 33.8, Red Cell Distribution Width 13.0, Platelet Count 216, Mean Platelet Volume 8.2, Neutrophils (%) (Auto) 50.7, Lymphocytes (%) (Auto) 38.4, Monocytes (%) (Auto) 7.9, Eosinophils (%) (Auto) 2.1, Basophils (%) (Auto ) 0.9, Prothrombin Time 10.4, Prothromb Time International Ratio 1.0, Activated Partial Thromboplast Time 26, Sodium Level 141, Potassium Level 3.3L, Chloride Level 105, Carbon Dioxide Level 30, Anion Gap 6, Blood Urea Nitrogen 12, Creatinine 0.9, Estimat Glomerular Filtration Rate , Glucose Level 104, Calcium Level 8.8, Troponin I 0.000, Vitamin B12 Level 528, Folate 10.4 07/30/17 07:35: Vitamin D 25-Hydroxy [Pending], 25-Hydroxy Vitamin D2 [Pending], 25-Hydroxy Vitamin D3 [Pending] Height (Feet): 5 Height (Inches): 5.00 Weight (Pounds): 192 Objective General: alert, cooperative, no distress, appears stated age Head: normocephalic, without obvious abnormality, atraumatic Eyes: conjunctivae/corneas clear. PERRL, EOM's intact Throat: lips, mucosa, and tongue normal. MMM Neck: supple, symmetrical, trachea midline, and no JVD Lungs: clear to auscultation bilaterally Heart: regular rate and rhythm, S1, S2 normal, no murmur, click, rub or gallop Abdomen: soft, +TTP of mid to lower abd, non-distended, bowel sounds normal; no masses or organomegaly Extremities: extremities normal, atraumatic, no cyanosis or edema Pulses: 2+ and symmetric Skin: skin color, texture, turgor normal; no rashes or lesions Neurologic: grossly normal, no focal deficits Galen Mehta M.D. Jul 30, 2017 15:50
[2017-07-30 16:00] VITALS: BP 122/59
[2017-07-30] MEDS: cefTRIAXone 1 GM in D5W 55 ML IVPB SCH (18:50)
--- NOTE | 2017-07-30 19:13 | Cardiac Electrophysiology PN ---
Assessment/Plan Assessment/Plan 1. Syncopal episodes.Ruled out myocardial infarction. 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 Syncopal episodes may be secondary to dehydration due to nausea and vomiting. Echo Nl EF 2. History of coronary artery bypass graft , no chest pain, completely rule out myocardial infarction protocol. The patient is on atenolol 50 mg daily and Plavix 75 mg daily, that will be continued at this time. 3. Abdominal pain and nausea and vomiting. Abdominal and pelvis CT scan showed colonic diverticulosis, but no evidence of diverticulitis with no acute abnormality. Subjective Subjective Feeling better. Transferred to non monitored bed. Objective Last 24 Hour Vital Signs Date Time Temp Pulse Resp B/P (MAP) Pulse Ox O2 Delivery O2 Flow Rate FiO2 07/30/17 16:00 97.7 64 20 122/59 96 Room Air 97.7 07/30/17 12:00 98.6 62 20 144/74 98 Room Air 98.6 07/30/17 11:14 97.8 07/30/17 09:40 63 109/57 07/30/17 09:38 97.8 07/30/17 08:00 98.6 62 20 144/74 98 Room Air 98.6 07/30/17 08:00 58 07/30/17 04:00 97.8 60 20 111/59 96 Room Air 97.8 07/30/17 04:00 71 07/30/17 00:00 98.0 57 18 102/66 96 Room Air 98.0 07/30/17 00:00 74 07/29/17 20:00 97.7 60 20 99/64 96 Room Air 97.7 07/29/17 20:00 70 Intake and Output 07/29/17 07/30/17 19:00 07:00 Intake Total 850 ml 0 ml Output Total 400 ml Balance 450 ml 0 ml Intake Oral 850 ml 0 ml Output Urine Total 400 ml # Voids 1 2 # Bowel Movements 6 Laboratory Tests Test 07/30/17 07:25 07/30/17 07:35 White Blood Count 6.8 K/UL (4.8-10.8) Red Blood Count 4.15 M/UL (4.20-5.40) L Hemoglobin 12.6 G/DL (12.0-16.0) Hematocrit 37.2 % (37.0-47.0) Mean Corpuscular Volume 90 FL (80-99) Mean Corpuscular Hemoglobin 30.3 PG (27.0-31.0) Mean Corpuscular Hemoglobin Concent 33.8 G/DL (32.0-36.0) Red Cell Distribution Width 13.0 % (11.6-14.8) Platelet Count 216 K/UL (150-450) Mean Platelet Volume 8.2 FL (6.5-10.1) Neutrophils (%) (Auto) 50.7 % (45.0-75.0) Lymphocytes (%) (Auto) 38.4 % (20.0-45.0) Monocytes (%) (Auto) 7.9 % (1.0-10.0) Eosinophils (%) (Auto) 2.1 % (0.0-3.0) Basophils (%) (Auto) 0.9 % (0.0-2.0) Prothrombin Time 10.4 SEC (9.30-11.50) Prothromb Time International Ratio 1.0 (0.9-1.1) Activated Partial Thromboplast Time 26 SEC (23-33) Sodium Level 141 MMOL/L (136-145) Potassium Level 3.3 MMOL/L (3.5-5.1) L Chloride Level 105 MMOL/L (98-107) Carbon Dioxide Level 30 MMOL/L (21-32) Anion Gap 6 mmol/L (5-15) Blood Urea Nitrogen 12 mg/dL (7-18) Creatinine 0.9 MG/DL (0.55-1.30) Estimat Glomerular Filtration Rate mL/min (>60) Glucose Level 104 MG/DL (74-106) Calcium Level 8.8 MG/DL (8.5-10.1) Troponin I 0.000 ng/mL (0.000-0.056) Vitamin B12 Level 528 PG/ML (193-986) Folate 10.4 NG/ML (8.6-58.9) Vitamin D 25-Hydroxy Pending 25-Hydroxy Vitamin D2 Pending 25-Hydroxy Vitamin D3 Pending Microbiology Date/Time Source Procedure Growth Status 07/29/17 17:40 Urine,Clean Catch Urine Culture - Preliminary NO GROWTH Resulted 07/28/17 20:49 Urine,Clean Catch Urine Culture - Preliminary Mixed Gram Positive Organism Resulted Objective HEAD AND NECK: Showed no JVD. LUNGS: Clear. CARDIOVASCULAR: Regular S1 and S2 with no gallop or murmur. ABDOMEN: Distended and generally tender. A sternotomy scar in chest is intact. EXTREMITIES: Trace pitting edema. Parish Chase MD Jul 30, 2017 19:13
[2017-07-30 20:00] VITALS: BP 116/76
[2017-07-31] VITALS: BP 120/70
[2017-07-31 04:00] VITALS: BP 135/73
[2017-07-31] MEDS: D5 1/2NS w/KCl 20mEq 1,000 ML IV SCH (06:15)
[2017-07-31 07:30] LABS: ANION GAP 8 mmol/L (5-15); BLOOD UREA NITROGEN 13 mg/dL (7-18); CALCIUM 8.6 MG/DL (8.5-10.1); CARBON DIOXIDE 26 MMOL/L (21-32); CHLORIDE 108 MMOL/L (98-107); CREATININE 0.9 MG/DL (0.55-1.30); POTASSIUM 3.4 MMOL/L (3.5-5.1); SODIUM 142 MMOL/L (136-145)
[2017-07-31 07:39] LABS: BASOPHILS % (AUTO) 1.4 % (0.0-2.0); EOSINOPHILS % (AUTO) 1.7 % (0.0-3.0); HEMATOCRIT 34.3 % (37.0-47.0); HEMOGLOBIN 11.8 G/DL (12.0-16.0); LYMPHOCYTES % (AUTO) 39.8 % (20.0-45.0); MEAN CORPUSCULAR VOLUME 90 FL (80-99); MONOCYTES % (AUTO) 10.9 % (1.0-10.0); NEUTROPHILS % (AUTO) 46.2 % (45.0-75.0); PLATELET COUNT 216 K/UL (150-450); RED BLOOD COUNT 3.83 M/UL (4.20-5.40); RED CELL DISTRIBUTION WIDTH 12.8 % (11.6-14.8); WHITE BLOOD COUNT 6.2 K/UL (4.8-10.8)
--- NOTE | 2017-07-31 07:59 | General Progress Note ---
Assessment/Plan Problem List: (1) Anemia ICD Codes: D64.9 - Anemia, unspecified SNOMED: 440703860 (2) Coronary artery disease ICD Codes: I25.10 - Atherosclerotic heart disease of [place] coronary artery without angina pectoris SNOMED: 56832520 (3) Rectal pain ICD Codes: K62.89 - Other specified diseases of anus and rectum SNOMED: 46224451 (4) Osteoarthritis ICD Codes: M19.90 - Unspecified osteoarthritis, unspecified site SNOMED: 088588101 (5) HTN (hypertension) ICD Codes: I10 - Essential (primary) hypertension SNOMED: 01619161 (6) CAD s/p CABG (7) Syncope ICD Codes: R55 - Syncope and collapse SNOMED: 478268622 Qualifiers: Qualified Codes: R55 - Syncope and collapse Assessment/Plan EGD and colonoscopy was canceled by cardiology last week anemia work up add anusol HC fu 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 Subjective ROS Limited/Unobtainable: Yes Allergies: Coded Allergies: MORPHINE (Verified Allergy, Unknown, 07/28/17) PENICILLINS (Verified Allergy, Unknown, 07/28/17) Subjective c/o rectal pain wants to go home for her birthday tomorrow Objective Last 24 Hour Vital Signs Date Time Temp Pulse Resp B/P (MAP) Pulse Ox O2 Delivery O2 Flow Rate FiO2 07/31/17 04:00 98.1 71 17 135/73 96 Room Air 98.1 07/31/17 00:00 97.9 85 19 120/70 98 Room Air 97.9 07/30/17 20:00 98.2 67 17 116/76 95 Room Air 98.2 07/30/17 16:00 97.7 64 20 122/59 96 Room Air 97.7 07/30/17 12:00 98.6 62 20 144/74 98 Room Air 98.6 07/30/17 11:14 97.8 07/30/17 09:40 63 109/57 07/30/17 09:38 97.8 07/30/17 08:00 98.6 62 20 144/74 98 Room Air 98.6 07/30/17 08:00 58 Intake and Output 07/30/17 07/31/17 19:00 07:00 Intake Total 370 ml 900 ml Balance 370 ml 900 ml Intake Oral 370 ml IV Total 900 ml # Voids 3 2 # Bowel Movements 3 Laboratory Tests 07/31/17 06:35: White Blood Count 6.2, Red Blood Count 3.83L, Hemoglobin 11.8L, Hematocrit 34.3L , Mean Corpuscular Volume 90, Mean Corpuscular Hemoglobin 30.7, Mean Corpuscular Hemoglobin Concent 34.2, Red Cell Distribution Width 12.8, Platelet Count 216, Mean Platelet Volume 7.9, Neutrophils (%) (Auto) 46.2, Lymphocytes (% ) (Auto) 39.8, Monocytes (%) (Auto) 10.9H, Eosinophils (%) (Auto) 1.7, Basophils (%) (Auto) 1.4, Sodium Level 142, Potassium Level 3.4L, Chloride Level 108H, Carbon Dioxide Level 26, Anion Gap 8, Blood Urea Nitrogen 13, Creatinine 0.9, Estimat Glomerular Filtration Rate , Glucose Level 117H, Calcium Level 8.6 Height (Feet): 5 Height (Inches): 5.00 Weight (Pounds): 192 General Appearance: alert EENT: normal ENT inspection Neck: supple Cardiovascular: normal rate Respiratory/Chest: lungs clear Abdomen: normal bowel sounds, non tender, soft Extremities: non-tender GUY PHILLIPS Jul 31, 2017 07:59
[2017-07-31 08:00] VITALS: BP 131/70
[2017-07-31] MEDS: Sennosides 8.6mg ORAL SCH (08:50)
[2017-07-31] MEDS: Miralax 17gm pkt ORAL SCH (08:50)
[2017-07-31] MEDS: Dicyclomine 10mg Cap ORAL SCH ×4 (08:51→21:18)
[2017-07-31] MEDS: Docusate 100mg cap ORAL SCH ×2 (08:58→21:18)
[2017-07-31] MEDS: Heparin 5000 units/ml inj SUBQ SCH ×2 (08:59→21:19)
[2017-07-31] MEDS: Hydrocortisone SUPP RECTAL SCH ×2 (10:37→17:34)
[2017-07-31 12:16] VITALS: BP 125/84
--- NOTE | 2017-07-31 12:34 | General Surgery Progress Note ---
General Surgery-Progress Note Subjective Symptoms: improved, pain absent, tolerating diet, passing flatus Additional Comments no acute events. doing well. comfortable. Objective Last 24 Hour Vital Signs Date Time Temp Pulse Resp B/P (MAP) Pulse Ox O2 Delivery O2 Flow Rate FiO2 07/31/17 12:16 97.7 64 18 125/84 96 Room Air 97.7 07/31/17 08:51 96 131/70 07/31/17 08:00 98.1 70 19 131/70 96 Room Air 98.1 07/31/17 04:00 98.1 71 17 135/73 96 Room Air 98.1 07/31/17 00:00 97.9 85 19 120/70 98 Room Air 97.9 07/30/17 20:00 98.2 67 17 116/76 95 Room Air 98.2 07/30/17 16:00 97.7 64 20 122/59 96 Room Air 97.7 I&O Intake and Output 07/30/17 07/31/17 19:00 07:00 Intake Total 370 ml 900 ml Balance 370 ml 900 ml Intake Oral 370 ml IV Total 900 ml # Voids 3 2 # Bowel Movements 3 Drains: none Cardiovascular: RSR Respiratory: clear Abdomen: soft, flat, non-tender, present bowel sounds Extremities: no cyanosis Laboratory Tests Test 07/31/17 06:35 White Blood Count 6.2 K/UL (4.8-10.8) Red Blood Count 3.83 M/UL (4.20-5.40) L Hemoglobin 11.8 G/DL (12.0-16.0) L Hematocrit 34.3 % (37.0-47.0) L Mean Corpuscular Volume 90 FL (80-99) Mean Corpuscular Hemoglobin 30.7 PG (27.0-31.0) Mean Corpuscular Hemoglobin Concent 34.2 G/DL (32.0-36.0) Red Cell Distribution Width 12.8 % (11.6-14.8) Platelet Count 216 K/UL (150-450) Mean Platelet Volume 7.9 FL (6.5-10.1) Neutrophils (%) (Auto) 46.2 % (45.0-75.0) Lymphocytes (%) (Auto) 39.8 % (20.0-45.0) Monocytes (%) (Auto) 10.9 % (1.0-10.0) H Eosinophils (%) (Auto) 1.7 % (0.0-3.0) Basophils (%) (Auto) 1.4 % (0.0-2.0) Sodium Level 142 MMOL/L (136-145) Potassium Level 3.4 MMOL/L (3.5-5.1) L Chloride Level 108 MMOL/L (98-107) H Carbon Dioxide Level 26 MMOL/L (21-32) Anion Gap 8 mmol/L (5-15) Blood Urea Nitrogen 13 mg/dL (7-18) Creatinine 0.9 MG/DL (0.55-1.30) Estimat Glomerular Filtration Rate mL/min (>60) Glucose Level 117 MG/DL (74-106) H Calcium Level 8.6 MG/DL (8.5-10.1) Plan Problems: (1) Abdominal pain Assessment & Plan: 76F with abdominal discomfort with radiation to pelvis. afebrile, HD Stable, labs okay, CT reviewed, exam with lower abdominal and pelvic tenderness. likely related to UTI she has. describes dysuria. urine culture with mixed gram positive -no acute surgical intervention necessary. -okay for diet -abx -f/u urine culture -will follow with recs thank you for this consultation. John Panda Jul 31, 2017 12:34
--- NOTE | 2017-07-31 14:50 | Cardiac Electrophysiology PN ---
Assessment/Plan Assessment/Plan 1. Syncopal episodes.Ruled out myocardial infarction. 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 Syncopal episodes may be secondary to dehydration due to nausea and vomiting. Echo Nl EF 2. History of coronary artery bypass graft , no chest pain, completely ruled out myocardial infarction. The patient is on atenolol 50 mg daily and Plavix 75 mg daily, that will be continued at this time. 3. Abdominal pain and nausea and vomiting. Abdominal and pelvis CT scan showed colonic diverticulosis, but no evidence of diverticulitis with no acute abnormality.EGD and colonoscopy pending if pt agrees. SAMRA RN Subjective Subjective Feeling better. Is undecided re EGD and colonoscopy. No CP. Has rectal/Vaginal pain Objective Last 24 Hour Vital Signs Date Time Temp Pulse Resp B/P (MAP) Pulse Ox O2 Delivery O2 Flow Rate FiO2 07/31/17 12:16 97.7 64 18 125/84 96 Room Air 97.7 07/31/17 08:51 96 131/70 07/31/17 08:00 98.1 70 19 131/70 96 Room Air 98.1 07/31/17 04:00 98.1 71 17 135/73 96 Room Air 98.1 07/31/17 00:00 97.9 85 19 120/70 98 Room Air 97.9 07/30/17 20:00 98.2 67 17 116/76 95 Room Air 98.2 07/30/17 16:00 97.7 64 20 122/59 96 Room Air 97.7 Intake and Output 07/30/17 07/31/17 19:00 07:00 Intake Total 370 ml 900 ml Balance 370 ml 900 ml Intake Oral 370 ml IV Total 900 ml # Voids 3 2 # Bowel Movements 3 Laboratory Tests Test 07/31/17 06:35 White Blood Count 6.2 K/UL (4.8-10.8) Red Blood Count 3.83 M/UL (4.20-5.40) L Hemoglobin 11.8 G/DL (12.0-16.0) L Hematocrit 34.3 % (37.0-47.0) L Mean Corpuscular Volume 90 FL (80-99) Mean Corpuscular Hemoglobin 30.7 PG (27.0-31.0) Mean Corpuscular Hemoglobin Concent 34.2 G/DL (32.0-36.0) Red Cell Distribution Width 12.8 % (11.6-14.8) Platelet Count 216 K/UL (150-450) Mean Platelet Volume 7.9 FL (6.5-10.1) Neutrophils (%) (Auto) 46.2 % (45.0-75.0) Lymphocytes (%) (Auto) 39.8 % (20.0-45.0) Monocytes (%) (Auto) 10.9 % (1.0-10.0) H Eosinophils (%) (Auto) 1.7 % (0.0-3.0) Basophils (%) (Auto) 1.4 % (0.0-2.0) Sodium Level 142 MMOL/L (136-145) Potassium Level 3.4 MMOL/L (3.5-5.1) L Chloride Level 108 MMOL/L (98-107) H Carbon Dioxide Level 26 MMOL/L (21-32) Anion Gap 8 mmol/L (5-15) Blood Urea Nitrogen 13 mg/dL (7-18) Creatinine 0.9 MG/DL (0.55-1.30) Estimat Glomerular Filtration Rate mL/min (>60) Glucose Level 117 MG/DL (74-106) H Calcium Level 8.6 MG/DL (8.5-10.1) Microbiology Date/Time Source Procedure Growth Status 07/29/17 17:40 Urine,Clean Catch Urine Culture - Final Mixed Gram Positive Organism Complete 07/28/17 20:49 Urine,Clean Catch Urine Culture - Final Mixed Gram Positive Organism Complete Objective HEAD AND NECK: Showed no JVD. LUNGS: Clear. CARDIOVASCULAR: Regular S1 and S2 with no gallop or murmur. ABDOMEN: Distended and generally tender. A sternotomy scar in chest is intact. EXTREMITIES: Trace pitting edema. Parish Chase MD Jul 31, 2017 14:50
[2017-07-31 16:00] VITALS: BP 144/68
[2017-07-31] MEDS ORDERED: NITROFURANTOIN100 M2 ORAL (16:52)
[2017-07-31] MEDS: cefTRIAXone 1 GM in D5W 55 ML IVPB SCH (17:36)
[2017-07-31 20:00] VITALS: BP 144/68
--- NOTE | 2017-07-31 20:25 | General Progress Note ---
Assessment/Plan Problem List: (1) Syncope ICD Codes: R55 - Syncope and collapse SNOMED: 787279248 Qualifiers: Qualified Codes: R55 - Syncope and collapse (2) Hypokalemia ICD Codes: E87.6 - Hypokalemia SNOMED: 29084578 (3) Abdominal pain ICD Codes: R10.9 - Unspecified abdominal pain SNOMED: 21305135 Qualifiers: Qualified Codes: R10.84 - Generalized abdominal pain (4) UTI (urinary tract infection) ICD Codes: N39.0 - Urinary tract infection, site not specified SNOMED: 52294944 (5) CAD s/p CABG (6) CVA (cerebral vascular accident) ICD Codes: I63.9 - Cerebral infarction, unspecified SNOMED: 597139685 (7) HTN (hypertension) ICD Codes: I10 - Essential (primary) hypertension SNOMED: 35812553 Status: stable Assessment/Plan Syncope appears to be vasovagal type given occurred while getting blood drawn and in setting of pain Abd pain possibly 2/2 UTI Cardiology consulted for syncope eval Trop neg. EKG w/o acute ST/T changes Check TTE--normal EF Check carotid duplex--unremarkable F/u TSH, A1C, B12/folate, Vit D GI consulted given abd pain EGD and colonoscopy was planned for yesterday but now canceled. Pt refused Advance to regular diet per GI D/c IVFs Monitor lytes and replete Surgery eval--no acute intervention needed Empiric ceftriaxone for UTI (07/29-) s/p levaquin in ED on 07/28 F/u urine culture--mixed gram positive org Pain control, bowel regimen, supportive care Pt currently requiring IV narcotics for pain control. Wean off as tolerated PT eval Possible d/c tomorrow if pain controlled and tolerating pO DVT Prophylaxis: SCD, HSQ Code Status: Full Hospital Classification Declaration: Based on this initial evaluation, and depending on the patient's clinical course, I anticipate that this patient will require hospitalization for 1-2 days for syncope eval, intractable abd pain and close respiratory/hemodynamic monitoring. Disposition: Once the patient is stable to leave the hospital, I anticipate the patient will likely be discharged to the following environment: home with HH vs SNF I spent 41 minutes on this patient's case, and >50% were dedicated to counseling and/or care coordination. Discussed with patient/family, nursing staff, SW/CM, GI, surgery, cardiology regarding clinical status, treatment course, and disposition planning. D/w GI and surgery regarding abd pain, abx Medical decision complexity: high Pt requiring IV narcotics for pain control Discussion w/ cardiology re syncope eval Discussion w/ GI re EGD and colo Time of note may not reflect time of encounter. Subjective Date patient seen: Jul 31, 2017 Time patient seen: 15:10 ROS Limited/Unobtainable: No Constitutional: Reports: no symptoms HEENT: Reports: no symptoms Cardiovascular: Reports: no symptoms Respiratory: Reports: no symptoms Gastrointestinal/Abdominal: Reports: abdominal pain Genitourinary: Reports: no symptoms Neurologic/Psychiatric: Reports: no symptoms Endocrine: Reports: no symptoms Hematologic/Lymphatic: Reports: no symptoms Allergies: Coded Allergies: MORPHINE (Verified Allergy, Unknown, 07/28/17) PENICILLINS (Verified Allergy, Unknown, 07/28/17) All Systems: reviewed and negative except above Subjective No acute o/n events EGD/colo cancelled yesterday. Pt refusing Pt notes some improvement in abd pain. Nausea resolved. Tolerating PO. C/o burning pain when urinating which has improved Objective Last 24 Hour Vital Signs Date Time Temp Pulse Resp B/P (MAP) Pulse Ox O2 Delivery O2 Flow Rate FiO2 07/31/17 16:00 98.2 70 20 144/68 97 Room Air 98.2 07/31/17 12:16 97.7 64 18 125/84 96 Room Air 97.7 07/31/17 08:51 96 131/70 07/31/17 08:00 98.1 70 19 131/70 96 Room Air 98.1 07/31/17 04:00 98.1 71 17 135/73 96 Room Air 98.1 07/31/17 00:00 97.9 85 19 120/70 98 Room Air 97.9 Intake and Output 07/30/17 07/31/17 19:00 07:00 Intake Total 370 ml 900 ml Balance 370 ml 900 ml Intake Oral 370 ml IV Total 900 ml # Voids 3 2 # Bowel Movements 3 Laboratory Tests 07/31/17 06:35: White Blood Count 6.2, Red Blood Count 3.83L, Hemoglobin 11.8L, Hematocrit 34.3L , Mean Corpuscular Volume 90, Mean Corpuscular Hemoglobin 30.7, Mean Corpuscular Hemoglobin Concent 34.2, Red Cell Distribution Width 12.8, Platelet Count 216, Mean Platelet Volume 7.9, Neutrophils (%) (Auto) 46.2, Lymphocytes (% ) (Auto) 39.8, Monocytes (%) (Auto) 10.9H, Eosinophils (%) (Auto) 1.7, Basophils (%) (Auto) 1.4, Sodium Level 142, Potassium Level 3.4L, Chloride Level 108H, Carbon Dioxide Level 26, Anion Gap 8, Blood Urea Nitrogen 13, Creatinine 0.9, Estimat Glomerular Filtration Rate , Glucose Level 117H, Calcium Level 8.6 Height (Feet): 5 Height (Inches): 5.00 Weight (Pounds): 192 Objective General: alert, cooperative, no distress, appears stated age Head: normocephalic, without obvious abnormality, atraumatic Eyes: conjunctivae/corneas clear. PERRL, EOM's intact Throat: lips, mucosa, and tongue normal. MMM Neck: supple, symmetrical, trachea midline, and no JVD Lungs: clear to auscultation bilaterally Heart: regular rate and rhythm, S1, S2 normal, no murmur, click, rub or gallop Abdomen: soft, +TTP of mid to lower abd, non-distended, bowel sounds normal; no masses or organomegaly Extremities: extremities normal, atraumatic, no cyanosis or edema Pulses: 2+ and symmetric Skin: skin color, texture, turgor normal; no rashes or lesions Neurologic: grossly normal, no focal deficits Galen Mehta M.D. Jul 31, 2017 20:25
[2017-07-31] MEDS ORDERED: Tubing IV Secondary IV ONE (21:50)
[2017-08-01] VITALS: BP 145/73
[2017-08-01 04:00] VITALS: BP 108/75
--- NOTE | 2017-08-01 07:42 | General Progress Note ---
Assessment/Plan Problem List: (1) Anemia ICD Codes: D64.9 - Anemia, unspecified SNOMED: 275123313 (2) Coronary artery disease ICD Codes: I25.10 - Atherosclerotic heart disease of [place] coronary artery without angina pectoris SNOMED: 38368002 (3) Rectal pain ICD Codes: K62.89 - Other specified diseases of anus and rectum SNOMED: 27642199 (4) Osteoarthritis ICD Codes: M19.90 - Unspecified osteoarthritis, unspecified site SNOMED: 645931995 (5) HTN (hypertension) ICD Codes: I10 - Essential (primary) hypertension SNOMED: 05009713 (6) CAD s/p CABG (7) Syncope ICD Codes: R55 - Syncope and collapse SNOMED: 906844859 Qualifiers: Qualified Codes: R55 - Syncope and collapse Assessment/Plan EGD and colonoscopy was canceled by cardiology last week anemia work up anusol HC fu labs fu card going home today needs out patient fu for EGD and colonoscopy patient was given my card to call and to make an appointment Subjective ROS Limited/Unobtainable: Yes Allergies: Coded Allergies: MORPHINE (Verified Allergy, Unknown, 07/28/17) PENICILLINS (Verified Allergy, Unknown, 07/28/17) Subjective feeling better going home today Objective Last 24 Hour Vital Signs Date Time Temp Pulse Resp B/P (MAP) Pulse Ox O2 Delivery O2 Flow Rate FiO2 08/01/17 04:00 97.9 63 19 108/75 97 97.9 08/01/17 00:00 98.4 65 19 145/73 95 98.4 07/31/17 20:00 98.2 70 20 144/68 97 Room Air 98.2 07/31/17 16:00 98.2 70 20 144/68 97 Room Air 98.2 07/31/17 12:16 97.7 64 18 125/84 96 Room Air 97.7 07/31/17 08:51 96 131/70 07/31/17 08:00 98.1 70 19 131/70 96 Room Air 98.1 Intake and Output 07/31/17 08/01/17 19:00 07:00 Intake Total 900 ml 320 ml Output Total 3 ml 1 ml Balance 897 ml 319 ml Intake Oral 900 ml 320 ml Output Urine Total 2 ml Stool Total 1 ml 1 ml # Voids 1 5 # Bowel Movements 2 Height (Feet): 5 Height (Inches): 5.00 Weight (Pounds): 192 General Appearance: alert EENT: normal ENT inspection Neck: supple Cardiovascular: normal rate Respiratory/Chest: lungs clear Abdomen: normal bowel sounds, non tender, soft Extremities: non-tender GUY PHILLIPS Aug 01, 2017 07:42
[2017-08-01 08:00] VITALS: BP 145/85
[2017-08-01] MEDS: Sennosides 8.6mg ORAL SCH (08:28)
[2017-08-01] MEDS: Miralax 17gm pkt ORAL SCH (08:28)
[2017-08-01] MEDS: Dicyclomine 10mg Cap ORAL SCH (08:28)
[2017-08-01] MEDS: Docusate 100mg cap ORAL SCH (08:28)
[2017-08-01 08:30] VITALS: BP 145/85
[2017-08-01] MEDS: Heparin 5000 units/ml inj SUBQ SCH (08:31)
[2017-08-01] MEDS: Hydrocortisone SUPP RECTAL SCH (08:59)
--- NOTE | 2017-08-02 10:54 | Cardiology Report ---
APPROVED REPORT EXAM: Two-dimensional and M-mode echocardiogram with Doppler and color Doppler. INDICATION Syncope M-Mode DIMENSIONS IVSd1.3 (0.7-1.1cm)Left Atrium (MM)4.4 (1.6-4.0cm) LVDd4.6 (3.5-5.6cm)Aortic Root3.2 (2.0-3.7cm) PWd1.4 (0.7-1.1cm)Aortic Cusp Exc.1.8 (1.5-2.0cm) IVSs1.9 cm LVDs3.0 (2.5-4.0cm) PWs1.8 cm Technically difficult study due to poor acoustical windows. Normal left ventricular chamber size, systolic function and wall motion to extent visualized. Left ventricular ejection fraction estimated to be 60 %. Mild left ventricular hypertrophy by 2-D. No evidence of pericardial effusion. All other cardiac chamber sizes are within normal limits. Moderately Focal aortic valve sclerosis with adequate cusp excursion. Moderately Thickened mitral valve leaflets with normal excursion. Mitral annulus and aortic root calcification. Normal pulmonic valve structure. Normal tricuspid valve structure. IVC at normal size with physiologic collapse . A color flow and spectral Doppler study was performed and revealed: No aortic regurgitation. Trace mitral regurgitation. Normal left ventricular diastolic function Mild tricuspid regurgitation. Tricuspid systolic velocities suggests peak right ventricular systolic pressure of 30 mmHg, consistent with mild pulmonary hypertension. No Pulmonic regurgitation present.
--- NOTE | 2017-08-02 15:47 | General Progress Note ---
Assessment/Plan Assessment/Plan anxiety d/o Neurontin 300mg tid provided ro/st Subjective Date patient seen: Jul 31, 2017 Neurologic/Psychiatric: Reports: anxiety, depressed, emotional problems Allergies: Coded Allergies: MORPHINE (Verified Allergy, Unknown, 07/28/17) PENICILLINS (Verified Allergy, Unknown, 07/28/17) Objective Height (Feet): 5 Height (Inches): 5.00 Weight (Pounds): 192 General Appearance: no apparent distress, alert Neurologic: alert, oriented x 3, responsive, depressed affect Wilmer Diego M.D. Aug 02, 2017 15:47
--- NOTE | 2017-08-02 15:48 | General Progress Note ---
Assessment/Plan Assessment/Plan anxiety d/o Neurontin 300mg tid provided ro/st Subjective Date patient seen: Aug 01, 2017 Neurologic/Psychiatric: Reports: anxiety, depressed, emotional problems Allergies: Coded Allergies: MORPHINE (Verified Allergy, Unknown, 07/28/17) PENICILLINS (Verified Allergy, Unknown, 07/28/17) Objective Height (Feet): 5 Height (Inches): 5.00 Weight (Pounds): 192 General Appearance: no apparent distress, alert Wilmer Diego M.D. Aug 02, 2017 15:48
--- NOTE | 2017-08-03 22:20 | Discharge Summary ---
Discharge Summary Hospital Course Date of Admission Jul 28, 2017 at 19:20 Date of Discharge Aug 01, 2017 at 08:50 Admitting Diagnosis syncope, intractable abdominal pain Reason for Hospitalization: syncope, intractable abd pain, UTI HPI 76y/o female with pmh of CAD s/p CABG, CVA, HTN, OA, osteoporosis, fibromyalgia , pseudogout who presents with syncope and abd pain. Pt brought in by EMS after syncopal episode. She was having blood drawn at outpt lab when she subsequently passed out. No reports of seizure activity. No trauma report. Pt also c/o worsening abd pain, as well as pelvic, vaginal and rectal pain. Described as crampy pain in lower abd w/ radiation to pelvis. States she has had similar episodes prior. C/o dysuria. Has h/o UTIs. C/o constipation, no BM in over a week. Denies f/c, n/v, diarrhea, chest pain, SOB, palpitations, dizziness. C/o some abdominal bloating. Denies recent travel or sick contacts. In ED, pt w/ positive U/A c/w UTI, given levaquin. CT a/p showed no acute abnormality but showed diverticulosis Consultations Gastroenterology, Surgery, Cardiology Hospital Course Pt was admitted and seen by cardiology. Trop neg, EKG with no acute ST/T changes , so no e/o ACS. Syncope likely vasovagal type gven occurred while getting blood drawn and in setting of pain. Pt also with dysuria and abd pain likely 2/ 2 UTI given U/A with pyuria. Pt was started on antibiotics with improvement. GI was consulted given pt also with nausea and vomiting, but she refused endoscopy. Pt was transition to oral macrobid to complete antibiotic course of UTI on discharge. Pt was seen and examined on day of discharge. Discharge physical exam: General: alert, cooperative, no distress, appears stated age Head: normocephalic, without obvious abnormality, atraumatic Eyes: conjunctivae/corneas clear. PERRL, EOM's intact Throat: lips, mucosa, and tongue normal. MMM Neck: supple, symmetrical, trachea midline, and no JVD Lungs: clear to auscultation bilaterally Heart: regular rate and rhythm, S1, S2 normal, no murmur, click, rub or gallop Abdomen: soft, non-tender, non-distended, bowel sounds normal; no masses or organomegaly Extremities: extremities normal, atraumatic, no cyanosis or edema Pulses: 2+ and symmetric Skin: skin color, texture, turgor normal; no rashes or lesions Neurologic: grossly normal, no focal deficits Discharge diagnoses: (1) Syncope ICD Codes: R55 - Syncope and collapse SNOMED: 725165707 Qualifiers: Qualified Codes: R55 - Syncope and collapse (2) Hypokalemia ICD Codes: E87.6 - Hypokalemia SNOMED: 23240065 (3) Abdominal pain ICD Codes: R10.9 - Unspecified abdominal pain SNOMED: 96928510 Qualifiers: Qualified Codes: R10.84 - Generalized abdominal pain (4) UTI (urinary tract infection) ICD Codes: N39.0 - Urinary tract infection, site not specified SNOMED: 46535669 (5) CAD s/p CABG (6) CVA (cerebral vascular accident) ICD Codes: I63.9 - Cerebral infarction, unspecified SNOMED: 434530196 (7) HTN (hypertension) ICD Codes: I10 - Essential (primary) hypertension Discharge Medications New Medications: Nitrofurantoin Monohyd/M-Cryst* (Macrobid 100 Mg*) 100 Mg Capsule 100 MG ORAL EVERY 12 HOURS for 7 Days, #14 CAP Continued Medications: Acetaminophen* (Tylenol Extra Strength*) 500 Mg Tablet 500 MG ORAL Q6H PRN for Mild Pain/Temp > 100.5, TAB 0 Refills (This prescription has been renewed) Alendronate Sodium* (Fosamax*) 70 Mg Tablet 70 MG ORAL 1 TAB EVERY 7 DAYS. , TAB (This prescription has been renewed) Alendronate Sodium* (Fosamax*) 70 Mg Tablet 70 MG ORAL 1/2 TAB EVERY MORNIN, TAB (This prescription has been renewed) Atenolol* (Tenormin*) 50 Mg Tablet 50 MG ORAL DAILY, TAB (This prescription has been renewed) Cholecalciferol (Vitamin D3) (Vitamin D3) 1,000 Unit Capsule 1000 UNIT PO, CAP (This prescription has been renewed) Clopidogrel Bisulfate* (Plavix*) 75 Mg Tablet 75 MG ORAL DAILY, TAB (This prescription has been renewed) Dexlansoprazole (Dexilant) 30 Mg Cap.bp 30 MG ORAL DAILY, MG (This prescription has been renewed) Diclofenac Sodium (Diclo Gel) 1 Each Kit 1 EACH TP, KIT (This prescription has been renewed) Dicyclomine Hcl* (Dicyclomine Hcl*) 10 Mg Capsule 10 MG PO QID, CAP (This prescription has been renewed) Docusate Sodium (Stool Softener) 100 Mg Capsule 100 MG PO, CAP (This prescription has been renewed) Gabapentin* (Gabapentin*) 300 Mg Capsule 300 MG ORAL THREE TIMES A DAY, CAP 0 Refills (This prescription has been renewed ) Lidocaine HCL 2% Jelly* (Lidocaine Jelly 2%*) 5 Ml Jel.pf.kel 5 ML TOPIC DAILY, ML (This prescription has been renewed) Methylprednisolone (Methylprednisolone*) 4 Mg Tab.ds.pk 4 MG ORAL .as directed, #1 EA 0 Refills (This prescription has been renewed) Misoprostol* (Cytotec*) 200 Mcg Tablet 200 MCG PO 4 TAB VAGINAL, TAB (This prescription has been renewed) Nitroglycerin (Nitrostat) 0.4 Mg Tab.subl 0.4 MG SL Q5M X3 DOSES PRN for CHEST PAIN, #25 TAB 0 Refills (This prescription has been renewed) Potassium Chloride (Potassium Chloride) 8 Meq Capsule.er 8 MEQ PO, CAP (This prescription has been renewed) Discharge Condition Upon Discharge: stable Discharge Disposition Patient was discharged to Home with Home Health(06) Galen Mehta M.D. August 03, 2017 22:20
== END 2017-08-01 08:50 | disposition home health service (06) | DRG 392 ==
LOC: EDBD 18:08 → EMR 18:45 → 2E 19:20 → EDBEDREQ 19:57 → 3E 07-30 16:30
DX: R10.9 Unspecified abdominal pain (principal); N39.0 Urinary tract infection, site not specified; R55 Syncope and collapse; K62.89 Other specified diseases of anus and rectum; E87.6 Hypokalemia; D64.9 Anemia, unspecified; R11.2 Nausea with vomiting, unspecified; I25.10 Atherosclerotic heart disease of native coronary artery without angina pectoris; Z95.1 Presence of aortocoronary bypass graft; Z86.73 Personal history of transient ischemic attack (TIA), and cerebral infarction without residual deficits; I10 Essential (primary) hypertension; M19.90 Unspecified osteoarthritis, unspecified site; M81.0 Age-related osteoporosis without current pathological fracture; M79.7 Fibromyalgia; Z88.6 Allergy status to analgesic agent; Z88.0 Allergy status to penicillin; Z79.02 Long term (current) use of antithrombotics/antiplatelets; F41.9 Anxiety disorder, unspecified
CPT/HCPCS: 36415; 74177; 80048; 80053; 80061; 81003; 82306; 82607; 82746; 83036; 83690; 83735; 84443; 84484; 85025; 85610; 85730; 87086; 93005; 93306; 93880; 99285; J2405; J8499

== ENCOUNTER 2018-01-15 19:08 | Inpatient (IN) | payer MEDICARE, MEDICAID ==
[~2018-01-15] VITALS: Ht 167.6 cm; Wt 81.6 kg
[~2018-01-15 19:08] MED LIST: ATENOLOL50 MG ORAL; DEXILANT30 MG ORAL; DICLO GEL1 EACH TP; DICYCLOMINE HCL10 MG PO; FOSAMAX70 MG ORAL; GABAPENTIN300 MG ORAL; LD2JL30 TOPIC; MEDROL DOSEPAK4 MG ORAL; MISOPROSTOL200 MCG PO; NITROFURANTOIN100 M2 ORAL; NITROSTAT0.4 M1 SL; PLAVIX75 MG ORAL; POTASSIUM CHLOR8 ME2 PO; STOOL SOFTENER100 MG PO; TYLENOL EXTRA500 MG ORAL; VITAMIN D31000 UNI1 PO
--- NOTE | 2018-01-15 19:55 | Diagnostic Imaging Report ---
History: CP Exam: XR CXR 1 VIEW Comparison: None available FINDINGS: The lungs appear clear. Status post median sternotomy, CABG. The cardiac and mediastinal contours appear within limits. Mild appearing right acromioclavicular joint degenerative changes with small spurring seen. IMPRESSION: No evidence of acute disease.
--- NOTE | 2018-01-15 20:09 | Emergency Room Report ---
History of Present Illness General Chief Complaint: Chest Pain Source: Patient, Medical Record Present Illness HPI Patient presents initially with complaints of chest pain On further discussion patient is complaining of right upper quadrant pain as well increased nausea vomiting ongoing for the past one day Patient also has been complaining of a headache to the family There was no reports of dysuria No obvious focal weakness Denies any previous abdominal surgeries denies any recent travel or trauma Family reports that the patient appears to be having decreased sensation in vision of both eyes and has been acting less likely herself over the past 24-48 hours Patient's speech is clear however her memory has been also worsening Allergies: Coded Allergies: MORPHINE (Verified Allergy, Unknown, 07/28/17) PENICILLINS (Verified Allergy, Unknown, 07/28/17) Patient History Past Medical History: see triage record Pertinent Family History: none Now: No Reviewed Nursing Documentation: PMH: Agreed; PSxH: Agreed Nursing Documentation-PMH Hx Cardiac Problems: Yes - coronary bypass Hx Hypertension: Yes Hx Cancer: No Hx Gastrointestinal Problems: Yes - GERD Hx Neurological Problems: No Review of Systems All Other Systems: negative except mentioned in HPI Physical Exam Vital Signs Date Time Temp Pulse Resp B/P (MAP) Pulse Ox O2 Delivery O2 Flow Rate FiO2 01/15/18 19:16 98.4 89 15 121/89 94 Room Air 98.4 Sp02 EP Interpretation: reviewed, normal General Appearance: mild distress - In acute pain Head: normocephalic, atraumatic Eyes: bilateral eye PERRL, bilateral eye EOMI ENT: hearing grossly normal, normal pharynx Neck: full range of motion, supple Respiratory: lungs clear Cardiovascular #1: regular rate, rhythm, no edema Gastrointestinal: other - Subjectively points to the right upper quadrant Musculoskeletal: normal inspection Neurologic: oriented x3, responsive Skin: normal color, no rash Lymphatic: no adenopathy Medical Decision Making Diagnostic Impression: Primary Impression: Chest pain Additional Impressions: ACS (acute coronary syndrome) CVA (cerebral vascular accident) ER Course Patient is a fairly complex patient with multiple differential to consideration including but not limited to cardiac cardiopulmonary and vascular emergencies Given the patient's complaints of patient having headache and also appearing more confused over the past 2-[address] head was also obtained There is a question of acute subacute area of ischemia Patient is not candidate for thrombolytic therapy There are multiple exclusions including timeframe which is well over 12 hours Patient's imaging of the abdomen is benign She appears to be improving with her symptoms Blood work is otherwise appropriate Production Estimator notified and patient admitted for further inpatient care/ Labs Test 01/15/18 19:58 01/16/18 04:07 01/16/18 09:50 White Blood Count 10.1 K/UL (4.8-10.8) 9.8 K/UL (4.8-10.8) Red Blood Count 4.69 M/UL (4.20-5.40) 4.52 M/UL (4.20-5.40) Hemoglobin 14.5 G/DL (12.0-16.0) 13.4 G/DL (12.0-16.0) Hematocrit 43.3 % (37.0-47.0) 40.1 % (37.0-47.0) Mean Corpuscular Volume 92 FL (80-99) 89 FL (80-99) Mean Corpuscular Hemoglobin 30.8 PG (27.0-31.0) 29.7 PG (27.0-31.0) Mean Corpuscular Hemoglobin Concent 33.4 G/DL (32.0-36.0) 33.5 G/DL (32.0-36.0) Red Cell Distribution Width 13.0 % (11.6-14.8) 13.1 % (11.6-14.8) Platelet Count 175 K/UL (150-450) 201 K/UL (150-450) Mean Platelet Volume 7.7 FL (6.5-10.1) 8.1 FL (6.5-10.1) Neutrophils (%) (Auto) 60.6 % (45.0-75.0) 56.8 % (45.0-75.0) Lymphocytes (%) (Auto) 31.2 % (20.0-45.0) 34.0 % (20.0-45.0) Monocytes (%) (Auto) 6.2 % (1.0-10.0) 7.7 % (1.0-10.0) Eosinophils (%) (Auto) 0.4 % (0.0-3.0) 0.9 % (0.0-3.0) Basophils (%) (Auto) 1.5 % (0.0-2.0) 0.6 % (0.0-2.0) Sodium Level 138 MMOL/L (136-145) 137 MMOL/L (136-145) Potassium Level 4.1 MMOL/L (3.5-5.1) 4.0 MMOL/L (3.5-5.1) Chloride Level 102 MMOL/L (98-107) 103 MMOL/L (98-107) Carbon Dioxide Level 22 MMOL/L (21-32) 25 MMOL/L (21-32) Anion Gap 14 mmol/L (5-15) 9 mmol/L (5-15) Blood Urea Nitrogen 19 mg/dL (7-18) 24 mg/dL (7-18) Creatinine 1.0 MG/DL (0.55-1.30) 0.9 MG/DL (0.55-1.30) Estimat Glomerular Filtration Rate mL/min (>60) mL/min (>60) Glucose Level 86 MG/DL (74-106) 77 MG/DL (74-106) Calcium Level 9.7 MG/DL (8.5-10.1) 9.0 MG/DL (8.5-10.1) Total Bilirubin 0.8 MG/DL (0.2-1.0) Aspartate Amino Transf (AST/SGOT) 13 U/L (15-37) Alanine Aminotransferase (ALT/SGPT) 11 U/L (12-78) Alkaline Phosphatase 77 U/L (46-116) Total Creatine Kinase 99 U/L (26-308) Creatine Kinase MB 0.9 NG/ML (0.0-3.6) Creatine Kinase MB Relative Index 0.9 Troponin I 0.000 ng/mL (0.000-0.056) 0.017 ng/mL (0.000-0.056) 0.000 ng/mL (0.000-0.056) Pro-B-Type Natriuretic Peptide 574 pg/mL (0-125) Total Protein 7.7 G/DL (6.4-8.2) Albumin 3.8 G/DL (3.4-5.0) Globulin 3.9 g/dL Albumin/Globulin Ratio 1.0 (1.0-2.7) Lipase 44 U/L (73-393) EKG Diagnostic Results Rate: normal Rhythm: NSR ST Segments: other - Nonspecific ST T-wave changes Rhythm Strip Diag. Results EP Interpretation: yes Rate: 77 Rhythm: NSR, no PVC's, no ectopy Chest X-Ray Diagnostic Results Chest X-Ray Diagnostic Results : Chest X-Ray Ordered: Yes # of Views/Limited/Complete: 1 View Indication: Chest Pain EP Interpretation: Yes Interpretation: no consolidation, no effusion, no pneumothorax Impression: No acute disease Electronically Signed by: Arjun Santana DO CT/MRI/US Diagnostic Results CT/MRI/US Diagnostic Results : Impression CT headIMPRESSION: Small acute/recent appearing cortical infarct suggested at the left convexity axial 27 and coronal 26. No intracranial hemorrhage or mass effect. Confluent areas of white matter low attenuation may represent chronic small vessel ischemic disease. Suggestion of soft tissue opacification left external auditory canal, clinically correlate. CT abdomen pelvisIMPRESSION: No evidence of acute process on noncontrast imaging. Last Vital Signs Date Time Temp Pulse Resp B/P (MAP) Pulse Ox O2 Delivery O2 Flow Rate FiO2 01/15/18 19:16 98.4 89 15 121/89 94 Room Air 98.4 Status: improved Disposition: ADMITTED INPATIENT Condition: Serious Arjun Santana DO Jan 15, 2018 20:09
[2018-01-15] MEDS ORDERED: Ketorolac 30mg Inj IV ONE (20:15)
[2018-01-15] MEDS ORDERED: LORazepam Inj 2mg/ml 1ml IV ONE (20:15)
[2018-01-15 20:18] LABS: BASOPHILS % (AUTO) 1.5 % (0.0-2.0); EOSINOPHILS % (AUTO) 0.4 % (0.0-3.0); HEMATOCRIT 43.3 % (37.0-47.0); HEMOGLOBIN 14.5 G/DL (12.0-16.0); LYMPHOCYTES % (AUTO) 31.2 % (20.0-45.0); MEAN CORPUSCULAR VOLUME 92 FL (80-99); MONOCYTES % (AUTO) 6.2 % (1.0-10.0); NEUTROPHILS % (AUTO) 60.6 % (45.0-75.0); PLATELET COUNT 175 K/UL (150-450); RED BLOOD COUNT 4.69 M/UL (4.20-5.40); WHITE BLOOD COUNT 10.1 K/UL (4.8-10.8)
[2018-01-15] MEDS ORDERED: SIMVASTATIN40 MG ORAL (20:37)
[2018-01-15] MEDS ORDERED: VITAMIN D400 INTLU ORAL (20:37)
[2018-01-15 21:12] LABS: ANION GAP 14 mmol/L (5-15); BLOOD UREA NITROGEN 19 mg/dL (7-18); CALCIUM 9.7 MG/DL (8.5-10.1); CARBON DIOXIDE 22 MMOL/L (21-32); CHLORIDE 102 MMOL/L (98-107); POTASSIUM 4.1 MMOL/L (3.5-5.1); SODIUM 138 MMOL/L (136-145)
--- NOTE | 2018-01-15 21:20 | Diagnostic Imaging Report ---
History: AMS Exam: CT HEAD Without Contrast Technique more: CTDI is 70.38 mGy and DLP is 1379 mGy-cm. Technique more: One or more of the following dose reduction techniques were used: automated exposure control, adjustment of the mA and/or kV according to patient size, use of iterative reconstruction technique. Comparison: None available FINDINGS: Small acute/recent appearing cortical infarct suggested at the left convexity axial 27 and coronal 26. No intracranial hemorrhage or mass effect. The ventricles are within limits and midline. Confluent areas of white matter low attenuation may represent chronic small vessel ischemic disease. Visualized paranasal sinuses, mastoids and orbits are within limits. Suggestion of soft tissue opacification left external auditory canal, clinically correlate. IMPRESSION: Small acute/recent appearing cortical infarct suggested at the left convexity axial 27 and coronal 26. No intracranial hemorrhage or mass effect. Confluent areas of white matter low attenuation may represent chronic small vessel ischemic disease. Suggestion of soft tissue opacification left external auditory canal, clinically correlate.
[2018-01-15 21:25] LABS: ALANINE AMINOTRANSFERASE 11 U/L (12-78); ALBUMIN 3.8 G/DL (3.4-5.0); ALKALINE PHOSPHATASE 77 U/L (46-116); ASPARTATE AMINO TRANSFERASE 13 U/L (15-37); BILIRUBIN,TOTAL 0.8 MG/DL (0.2-1.0); CKMB 0.9 NG/ML (0.0-3.6); CREATINE KINASE 99 U/L (26-308)
--- NOTE | 2018-01-15 21:27 | Diagnostic Imaging Report ---
History: AMS Exam: CT ABDOMEN + PELVIS Without Contrast Technique more: CTDI is 15.23 mGy and DLP is 741 mGy-cm. Technique more: One or more of the following dose reduction techniques were used: automated exposure control, adjustment of the mA and/or kV according to patient size, use of iterative reconstruction technique. Comparison: 07/28/2017 FINDINGS: Basilar atelectasis. Right coronary calcification. The abdominal solid organs, gallbladder and abdominal aorta appear within limits on noncontrast imaging. Aortoiliac atherosclerotic calcification. No bowel dilation or free air. The adnexa, uterus and collapsed bladder appear unremarkable on noncontrast imaging. No free fluid. Lower lumbar spondylosis/discogenic change with bilateral L4-5 foraminal stenosis. Normal caliber appendix without secondary signs. Diverticulosis without diverticulitis. IMPRESSION: No evidence of acute process on noncontrast imaging.
[2018-01-15 21:35] VITALS: BP 122/86
[2018-01-15] MEDS ORDERED: COLCHICINE0.6 M1 PO (23:25)
[2018-01-16 01:00] VITALS: BP 117/63
[2018-01-16] MEDS ORDERED: Mylanta II UD 30ml ORAL PRN (01:15)
[2018-01-16 04:00] VITALS: BP 110/70
[2018-01-16 05:19] LABS: BASOPHILS % (AUTO) 0.6 % (0.0-2.0); EOSINOPHILS % (AUTO) 0.9 % (0.0-3.0); HEMATOCRIT 40.1 % (37.0-47.0); HEMOGLOBIN 13.4 G/DL (12.0-16.0); MEAN CORPUSCULAR VOLUME 89 FL (80-99); MONOCYTES % (AUTO) 7.7 % (1.0-10.0); NEUTROPHILS % (AUTO) 56.8 % (45.0-75.0); PLATELET COUNT 201 K/UL (150-450); RED BLOOD COUNT 4.52 M/UL (4.20-5.40); RED CELL DISTRIBUTION WIDTH 13.1 % (11.6-14.8); WHITE BLOOD COUNT 9.8 K/UL (4.8-10.8)
[2018-01-16 05:26] LABS: ANION GAP 9 mmol/L (5-15); BLOOD UREA NITROGEN 24 mg/dL (7-18); CARBON DIOXIDE 25 MMOL/L (21-32); CHLORIDE 103 MMOL/L (98-107); CREATININE 0.9 MG/DL (0.55-1.30); SODIUM 137 MMOL/L (136-145)
[2018-01-16 08:00] VITALS: BP 111/81
[2018-01-16] MEDS ORDERED: Docusate 100mg cap ORAL SCH (09:00)
[2018-01-16] MEDS ORDERED: Aspirin Baby 81mg ORAL SCH (09:00)
[2018-01-16] MEDS ORDERED: Pantoprazole Inj IVP SCH (09:00)
[2018-01-16] MEDS ORDERED: Gadavist 7.5mMol/7.5ml vial IV PRN ×3 (09:30→10:30)
--- NOTE | 2018-01-16 10:34 | Consultation ---
History of Present Illness General Date patient seen: Jan 16, 2018 Time patient seen: 10:33 Chief Complaint: Chest Pain Present Illness Allergies: Coded Allergies: MORPHINE (Verified Allergy, Unknown, 07/28/17) PENICILLINS (Verified Allergy, Unknown, 07/28/17) Medication History Scheduled Alendronate Sodium* (Fosamax*), 70 MG ORAL 1 TAB EVERY 7 DAYS. , (Reported) Alendronate Sodium* (Fosamax*), 70 MG ORAL 1/2 TAB EVERY MORNIN, (Reported) Atenolol* (Tenormin*), 50 MG ORAL DAILY, (Reported) Clopidogrel Bisulfate* (Plavix*), 75 MG ORAL DAILY, (Reported) Colchicine (Colchicine), 0.6 MG PO DAILY, (Reported) Dexlansoprazole (Dexilant), 60 MG ORAL DAILY, (Reported) Dicyclomine Hcl* (Dicyclomine Hcl*), 10 MG PO QID, (Reported) Gabapentin* (Gabapentin*), 300 MG ORAL THREE TIMES A DAY, (Reported) Lidocaine HCL 2% Jelly* (Lidocaine Jelly 2%*), 5 ML TOPIC DAILY, (Reported) Methylprednisolone (Methylprednisolone*), 4 MG ORAL .as directed, (Reported) Misoprostol* (Cytotec*), 200 MCG PO 4 TAB VAGINAL, (Reported) Nitrofurantoin Monohyd/M-Cryst* (Macrobid 100 Mg*), 100 MG ORAL EVERY 12 HOURS Simvastatin (Zocor), 40 MG ORAL BEDTIME, (Reported) Vitamin D (Vitamin D3), 1,000 UNITS ORAL DAILY, (Reported) Scheduled PRN Acetaminophen* (Tylenol Extra Strength*), 500 MG ORAL Q6H PRN for Mild Pain/ Temp > 100.5, (Reported) Nitroglycerin (Nitrostat), 0.4 MG SL Q5M X3 DOSES PRN for CHEST PAIN, (Reported) Miscellaneous Medications Cholecalciferol (Vitamin D3) (Vitamin D3), 1,000 UNIT PO, (Reported) Diclofenac Sodium (Diclo Gel), 1 EACH TP, (Reported) Docusate Sodium (Stool Softener), 100 MG PO, (Reported) Potassium Chloride (Potassium Chloride), 8 MEQ PO, (Reported) Patient History Healthcare decision maker Resuscitation status Full Code Advanced Directive on File Physical Exam Last 24 Hour Vital Signs Date Time Temp Pulse Resp B/P (MAP) Pulse Ox O2 Delivery O2 Flow Rate FiO2 01/16/18 09:08 77 111/81 01/16/18 04:00 98.2 74 22 110/70 (83) 98 98.2 01/16/18 04:00 71 01/16/18 01:00 98.2 97 23 117/63 (81) 97 98.2 01/16/18 01:00 76 01/16/18 01:00 Room Air 01/16/18 00:10 98.7 84 17 123/86 94 Room Air 98.7 01/15/18 21:35 98.7 84 17 122/86 94 Room Air 98.7 01/15/18 21:31 98.7 01/15/18 21:01 98.4 01/15/18 19:30 86 15 Room Air 01/15/18 19:16 98.4 89 15 121/89 94 Room Air 98.4 Intake and Output 01/15/18 01/16/18 19:00 07:00 Intake Total 120 ml Balance 120 ml Intake Oral 120 ml Laboratory Tests Test 01/15/18 19:58 01/16/18 04:07 01/16/18 09:50 White Blood Count 10.1 K/UL (4.8-10.8) 9.8 K/UL (4.8-10.8) Red Blood Count 4.69 M/UL (4.20-5.40) 4.52 M/UL (4.20-5.40) Hemoglobin 14.5 G/DL (12.0-16.0) 13.4 G/DL (12.0-16.0) Hematocrit 43.3 % (37.0-47.0) 40.1 % (37.0-47.0) Mean Corpuscular Volume 92 FL (80-99) 89 FL (80-99) Mean Corpuscular Hemoglobin 30.8 PG (27.0-31.0) 29.7 PG (27.0-31.0) Mean Corpuscular Hemoglobin Concent 33.4 G/DL (32.0-36.0) 33.5 G/DL (32.0-36.0) Red Cell Distribution Width 13.0 % (11.6-14.8) 13.1 % (11.6-14.8) Platelet Count 175 K/UL (150-450) 201 K/UL (150-450) Mean Platelet Volume 7.7 FL (6.5-10.1) 8.1 FL (6.5-10.1) Neutrophils (%) (Auto) 60.6 % (45.0-75.0) 56.8 % (45.0-75.0) Lymphocytes (%) (Auto) 31.2 % (20.0-45.0) 34.0 % (20.0-45.0) Monocytes (%) (Auto) 6.2 % (1.0-10.0) 7.7 % (1.0-10.0) Eosinophils (%) (Auto) 0.4 % (0.0-3.0) 0.9 % (0.0-3.0) Basophils (%) (Auto) 1.5 % (0.0-2.0) 0.6 % (0.0-2.0) Sodium Level 138 MMOL/L (136-145) 137 MMOL/L (136-145) Potassium Level 4.1 MMOL/L (3.5-5.1) 4.0 MMOL/L (3.5-5.1) Chloride Level 102 MMOL/L (98-107) 103 MMOL/L (98-107) Carbon Dioxide Level 22 MMOL/L (21-32) 25 MMOL/L (21-32) Anion Gap 14 mmol/L (5-15) 9 mmol/L (5-15) Blood Urea Nitrogen 19 mg/dL (7-18) H 24 mg/dL (7-18) H Creatinine 1.0 MG/DL (0.55-1.30) 0.9 MG/DL (0.55-1.30) Estimat Glomerular Filtration Rate mL/min (>60) mL/min (>60) Glucose Level 86 MG/DL (74-106) 77 MG/DL (74-106) Calcium Level 9.7 MG/DL (8.5-10.1) 9.0 MG/DL (8.5-10.1) Total Bilirubin 0.8 MG/DL (0.2-1.0) Aspartate Amino Transf (AST/SGOT) 13 U/L (15-37) L Alanine Aminotransferase (ALT/SGPT) 11 U/L (12-78) L Alkaline Phosphatase 77 U/L (46-116) Total Creatine Kinase 99 U/L (26-308) Creatine Kinase MB 0.9 NG/ML (0.0-3.6) Creatine Kinase MB Relative Index 0.9 Troponin I 0.000 ng/mL (0.000-0.056) 0.017 ng/mL (0.000-0.056) Pending Pro-B-Type Natriuretic Peptide 574 pg/mL (0-125) H Total Protein 7.7 G/DL (6.4-8.2) Albumin 3.8 G/DL (3.4-5.0) Globulin 3.9 g/dL Albumin/Globulin Ratio 1.0 (1.0-2.7) Lipase 44 U/L (73-393) L Height (Feet): 5 Height (Inches): 6.00 Weight (Pounds): 180 Medications Current Medications Medications (Trade) Dose Ordered Sig/Ej Route PRN Reason Start Time Stop Time Status Last Admin Dose Admin Al Hydroxide/Mg Hydroxide (Mylanta II) 30 ml Q6H PRN ORAL Nausea & Vomiting 01/16/18 01:15 02/15/18 01:14 Alendronate Sodium (Fosamax) 70 mg DAILY ORAL 01/16/18 09:00 02/15/18 08:59 UNV Aspirin (ASA) 81 mg DAILY ORAL 01/16/18 09:00 02/15/18 08:59 01/16/18 09:08 Atenolol (Tenormin) 50 mg DAILY ORAL 01/16/18 09:00 02/15/18 08:59 01/16/18 09:08 Atorvastatin Calcium (Lipitor) 80 mg BEDTIME ORAL 01/16/18 21:00 02/15/18 20:59 Clopidogrel Bisulfate (Plavix) 75 mg DAILY ORAL 01/16/18 09:00 02/15/18 08:59 01/16/18 09:08 Docusate Sodium (Colace) 100 mg DAILY ORAL 01/16/18 09:00 02/15/18 08:59 01/16/18 09:08 Gabapentin (Neurontin) 300 mg THREE TIMES A DAY ORAL 01/16/18 09:00 02/15/18 08:59 01/16/18 09:08 Gadobutrol (Gadavist) 7.5 mmol NOW PRN IV Radiology Procedure 01/16/18 09:30 01/20/18 09:21 Gadobutrol (Gadavist) 7.5 mmol NOW PRN IV Radiology Procedure 01/16/18 10:30 01/19/18 10:22 Gadobutrol (Gadavist) 7.5 mmol NOW PRN IV Radiology Procedure 01/16/18 10:30 01/19/18 10:22 Pantoprazole (Protonix) 40 mg DAILY IVP 01/16/18 09:00 02/15/18 08:59 01/16/18 09:08 Sodium Chloride 1,000 ml @ 75 mls/hr [id number] IV 01/16/18 09:30 02/15/18 09:29 Fortino Henry MD Jan 16, 2018 10:33
[2018-01-16 12:00] VITALS: BP 123/81
[2018-01-16] MEDS ORDERED: Acetaminophen 500mg (ES) tab ORAL PRN (12:16)
[2018-01-16] MEDS ORDERED: LORazepam Inj 2mg/ml 1ml IV SCH (12:16)
--- NOTE | 2018-01-16 14:19 | Diagnostic Imaging Report ---
EXAM: MR Head With Intravenous Contrast CLINICAL HISTORY: CVA TECHNIQUE: Magnetic resonance images of the head/brain with intravenous contrast in multiple planes. COMPARISON: CT head dated 01/15/18 FINDINGS: Brain: 3.0 x 1.9 cm region of focal restricted diffusion in the left posterior parietal lobe, consistent with subacute ischemia. Extensive periventricular and subcortical white matter hypodensities likely related to chronic small vessel disease changes. No evidence of intracranial hemorrhage. No mass effect or midline shift. Ventricles: Unremarkable. No ventriculomegaly. Bones/joints: Unremarkable. Sinuses: Unremarkable as visualized. No acute sinusitis. Mastoid air cells: Unremarkable as visualized. No mastoid effusion. Orbits: Unremarkable as visualized. IMPRESSION: 1. 3.0 x 1.9 cm region of focal restricted diffusion in the left posterior parietal lobe, consistent with subacute ischemia. 2. Extensive periventricular and subcortical white matter hypodensities likely related to chronic small vessel disease changes. 3. No evidence of intracranial hemorrhage. No mass effect or midline shift. Critical Value Communications 01/16/18 14:32 Verify Receipt Verified receipt with Christina FIERRO on 01/16 14:32 (-07:00)
--- NOTE | 2018-01-16 15:12 | History and Physical ---
History of Present Illness General Date patient seen: Jan 16, 2018 Reason for Hospitalization: Chest Pain Present Illness HPI 77 yo female w/ Hx MMP including prior CVAs (no residual deficits), CAD (s/p 4vCABG, PCI, on DAPT), Current smoker, HTN, HLD, Peripheral neuropathy, Osteoporosis and Gout presents to the ED w/ acute onset of slurred speech, decreased visual acuity and upper and lower extremity weakness with difficulty ambulating (uses a walker at baseline but independent in ADLs), headache (constant, occipital, not affected by light or sound) chest discomfort and abdominal pain. Pt awoke this am with these symptoms and was brought to the ED by family. In the ER pt was afebrile and HDS without focal deficits besides above. She was found to have a acute cortical infarct on CT B and continued on ASA/Plavix. CT Abd was unremarkable. Initial troponin neg and EKG w/o ST changes. Pt admitted for rule out ACS and CVA. Once on the Floor pt complained of worsening visual acuity and weakness of the extremities. Neurology consultation not available, case discussed w/ neurology at [facility] and transfer initiated. Allergies: Coded Allergies: MORPHINE (Verified Allergy, Unknown, 07/28/17) PENICILLINS (Verified Allergy, Unknown, 07/28/17) Medication History Scheduled Alendronate Sodium* (Fosamax*), 70 MG ORAL 1 TAB EVERY 7 DAYS. , (Reported) Alendronate Sodium* (Fosamax*), 70 MG ORAL 1/2 TAB EVERY MORNIN, (Reported) Atenolol* (Tenormin*), 50 MG ORAL DAILY, (Reported) Clopidogrel Bisulfate* (Plavix*), 75 MG ORAL DAILY, (Reported) Colchicine (Colchicine), 0.6 MG PO DAILY, (Reported) Dexlansoprazole (Dexilant), 60 MG ORAL DAILY, (Reported) Dicyclomine Hcl* (Dicyclomine Hcl*), 10 MG PO QID, (Reported) Gabapentin* (Gabapentin*), 300 MG ORAL THREE TIMES A DAY, (Reported) Lidocaine HCL 2% Jelly* (Lidocaine Jelly 2%*), 5 ML TOPIC DAILY, (Reported) Methylprednisolone (Methylprednisolone*), 4 MG ORAL .as directed, (Reported) Misoprostol* (Cytotec*), 200 MCG PO 4 TAB VAGINAL, (Reported) Nitrofurantoin Monohyd/M-Cryst* (Macrobid 100 Mg*), 100 MG ORAL EVERY 12 HOURS Simvastatin (Zocor), 40 MG ORAL BEDTIME, (Reported) Vitamin D (Vitamin D3), 1,000 UNITS ORAL DAILY, (Reported) Scheduled PRN Acetaminophen* (Tylenol Extra Strength*), 500 MG ORAL Q6H PRN for Mild Pain/ Temp > 100.5, (Reported) Nitroglycerin (Nitrostat), 0.4 MG SL Q5M X3 DOSES PRN for CHEST PAIN, (Reported) Miscellaneous Medications Cholecalciferol (Vitamin D3) (Vitamin D3), 1,000 UNIT PO, (Reported) Diclofenac Sodium (Diclo Gel), 1 EACH TP, (Reported) Docusate Sodium (Stool Softener), 100 MG PO, (Reported) Potassium Chloride (Potassium Chloride), 8 MEQ PO, (Reported) Medications Narrative Daughter to obtain Patient History History Provided By: Patient, Family Member, Medical Record Healthcare decision maker Daughter Resuscitation status Full Code Advanced Directive on File Family History Family History: Family history was reviewed; no changes noted. Review of Systems Constitutional: Reports: weakness; Denies: no symptoms, see HPI, chills, sweats , fever, malaise, other Eye: Reports: see HPI ENT: Denies: no symptoms, see HPI, ear pain, ear discharge, nose pain, nose congestion, throat pain, throat swelling, mouth pain, hearing loss, nasal discharge, other Respiratory: Denies: no symptoms, see HPI, cough, orthopnea, shortness of breath, stridor, wheezing, CABRERA, sputum, other Cardiovascular: Reports: see HPI, chest pain; Denies: no symptoms, edema, palpitations, syncope, PND, other Gastrointestinal: Reports: see HPI, abdominal pain Genitourinary: Denies: no symptoms, see HPI, discharge, dysuria, frequency, hematuria, pain, retention, incontinence, urgency, vag bleed/dc, other Musculoskeletal: Denies: no symptoms, see HPI, back pain, gout, joint pain, joint swelling, muscle pain, muscle stiffness, other Skin: Denies: no symptoms, see HPI, rash, change in color, change in hair/nails , dryness, lesions, other Psychiatric: Denies: no symptoms, see HPI, prior hx, anxiety, depressed feelings, emotional problems, SI, HI, hallucinations, other Neurological: Reports: see HPI, headache Endocrine: Denies: no symptoms, see HPI, excessive sweating, flushing, intolerance to temperature, increased thirst, increased urine, unexplained weight loss, other Physical Exam General Appearance: WD/WN, lethargic, confused HEENT: normocephalic, atraumatic, anicteric, mucous membranes moist, PERRL, EOMI, supple, no JVD Respiratory/Chest: lungs clear, normal breath sounds, no respiratory distress, no accessory muscle use Cardiovascular/Chest: normal peripheral pulses, normal rate, regular rhythm, regularly irregular, no gallop/murmur, no JVD Abdomen: normal bowel sounds, non tender, soft, no organomegaly, no mass Neurologic: alert, oriented x 3, motor weakness - Lower extrem 0/5, Upper extrem 3/5, other - poor visual acuity at > 12 in Last 24 Hour Vital Signs Date Time Temp Pulse Resp B/P (MAP) Pulse Ox O2 Delivery O2 Flow Rate FiO2 01/16/18 09:08 77 111/81 01/16/18 08:00 98.2 75 20 111/81 (91) 95 98.2 01/16/18 04:00 98.2 74 22 110/70 (83) 98 98.2 01/16/18 04:00 71 01/16/18 01:00 98.2 97 23 117/63 (81) 97 98.2 01/16/18 01:00 76 01/16/18 01:00 Room Air 01/16/18 00:10 98.7 84 17 123/86 94 Room Air 98.7 01/15/18 21:35 98.7 84 17 122/86 94 Room Air 98.7 01/15/18 21:31 98.7 01/15/18 21:01 98.4 01/15/18 19:30 86 15 Room Air 01/15/18 19:16 98.4 89 15 121/89 94 Room Air 98.4 Intake and Output 01/15/18 01/16/18 19:00 07:00 Intake Total 120 ml Balance 120 ml Intake Oral 120 ml Laboratory Tests Test 01/15/18 19:58 01/16/18 04:07 01/16/18 09:50 White Blood Count 10.1 K/UL (4.8-10.8) 9.8 K/UL (4.8-10.8) Red Blood Count 4.69 M/UL (4.20-5.40) 4.52 M/UL (4.20-5.40) Hemoglobin 14.5 G/DL (12.0-16.0) 13.4 G/DL (12.0-16.0) Hematocrit 43.3 % (37.0-47.0) 40.1 % (37.0-47.0) Mean Corpuscular Volume 92 FL (80-99) 89 FL (80-99) Mean Corpuscular Hemoglobin 30.8 PG (27.0-31.0) 29.7 PG (27.0-31.0) Mean Corpuscular Hemoglobin Concent 33.4 G/DL (32.0-36.0) 33.5 G/DL (32.0-36.0) Red Cell Distribution Width 13.0 % (11.6-14.8) 13.1 % (11.6-14.8) Platelet Count 175 K/UL (150-450) 201 K/UL (150-450) Mean Platelet Volume 7.7 FL (6.5-10.1) 8.1 FL (6.5-10.1) Neutrophils (%) (Auto) 60.6 % (45.0-75.0) 56.8 % (45.0-75.0) Lymphocytes (%) (Auto) 31.2 % (20.0-45.0) 34.0 % (20.0-45.0) Monocytes (%) (Auto) 6.2 % (1.0-10.0) 7.7 % (1.0-10.0) Eosinophils (%) (Auto) 0.4 % (0.0-3.0) 0.9 % (0.0-3.0) Basophils (%) (Auto) 1.5 % (0.0-2.0) 0.6 % (0.0-2.0) Sodium Level 138 MMOL/L (136-145) 137 MMOL/L (136-145) Potassium Level 4.1 MMOL/L (3.5-5.1) 4.0 MMOL/L (3.5-5.1) Chloride Level 102 MMOL/L (98-107) 103 MMOL/L (98-107) Carbon Dioxide Level 22 MMOL/L (21-32) 25 MMOL/L (21-32) Anion Gap 14 mmol/L (5-15) 9 mmol/L (5-15) Blood Urea Nitrogen 19 mg/dL (7-18) H 24 mg/dL (7-18) H Creatinine 1.0 MG/DL (0.55-1.30) 0.9 MG/DL (0.55-1.30) Estimat Glomerular Filtration Rate mL/min (>60) mL/min (>60) Glucose Level 86 MG/DL (74-106) 77 MG/DL (74-106) Calcium Level 9.7 MG/DL (8.5-10.1) 9.0 MG/DL (8.5-10.1) Total Bilirubin 0.8 MG/DL (0.2-1.0) Aspartate Amino Transf (AST/SGOT) 13 U/L (15-37) L Alanine Aminotransferase (ALT/SGPT) 11 U/L (12-78) L Alkaline Phosphatase 77 U/L (46-116) Total Creatine Kinase 99 U/L (26-308) Creatine Kinase MB 0.9 NG/ML (0.0-3.6) Creatine Kinase MB Relative Index 0.9 Troponin I 0.000 ng/mL (0.000-0.056) 0.017 ng/mL (0.000-0.056) 0.000 ng/mL (0.000-0.056) Pro-B-Type Natriuretic Peptide 574 pg/mL (0-125) H Total Protein 7.7 G/DL (6.4-8.2) Albumin 3.8 G/DL (3.4-5.0) Globulin 3.9 g/dL Albumin/Globulin Ratio 1.0 (1.0-2.7) Lipase 44 U/L (73-393) L Height (Feet): 5 Height (Inches): 6.00 Weight (Pounds): 180 Medications Current Medications Medications (Trade) Dose Ordered Sig/Ej Route PRN Reason Start Time Stop Time Status Last Admin Dose Admin Acetaminophen (Tylenol) 1,000 mg Q8H PRN ORAL Mild Pain/Temp > 100.5 01/16/18 12:16 11/13/18 12:15 01/16/18 14:10 Al Hydroxide/Mg Hydroxide (Mylanta II) 30 ml Q6H PRN ORAL Nausea & Vomiting 01/16/18 01:15 02/15/18 01:14 Alendronate Sodium (Fosamax) 70 mg DAILY ORAL 01/16/18 09:00 02/15/18 08:59 UNV Aspirin (ASA) 81 mg DAILY ORAL 01/16/18 09:00 02/15/18 08:59 01/16/18 09:08 Atenolol (Tenormin) 50 mg DAILY ORAL 01/16/18 09:00 02/15/18 08:59 01/16/18 09:08 Atorvastatin Calcium (Lipitor) 80 mg BEDTIME ORAL 01/16/18 21:00 02/15/18 20:59 Clopidogrel Bisulfate (Plavix) 75 mg DAILY ORAL 01/16/18 09:00 02/15/18 08:59 01/16/18 09:08 Docusate Sodium (Colace) 100 mg DAILY ORAL 01/16/18 09:00 02/15/18 08:59 01/16/18 09:08 Gabapentin (Neurontin) 300 mg THREE TIMES A DAY ORAL 01/16/18 09:00 02/15/18 08:59 01/16/18 14:10 Gadobutrol (Gadavist) 7.5 mmol NOW PRN IV Radiology Procedure 01/16/18 09:30 01/20/18 09:21 Gadobutrol (Gadavist) 7.5 mmol NOW PRN IV Radiology Procedure 01/16/18 10:30 01/19/18 10:22 Gadobutrol (Gadavist) 7.5 mmol NOW PRN IV Radiology Procedure 01/16/18 10:30 01/19/18 10:22 Lorazepam (Ativan 2mg/ml 1ml) 0.5 mg ONCE IV 01/16/18 12:16 01/16/18 15:00 01/16/18 12:43 Pantoprazole (Protonix) 40 mg DAILY IVP 01/16/18 09:00 02/15/18 08:59 01/16/18 09:08 Sodium Chloride 1,000 ml @ 75 mls/hr [id number] IV 01/16/18 09:30 02/15/18 09:29 Assessment/Plan Problem List: (1) Abdominal pain ICD Codes: R10.9 - Unspecified abdominal pain SNOMED: 37768922 (2) HTN (hypertension) ICD Codes: I10 - Essential (primary) hypertension SNOMED: 63991104 (3) CAD (coronary artery disease) ICD Codes: I25.10 - CAD (coronary artery disease) SNOMED: 70480630 (4) CVA (cerebral vascular accident) ICD Codes: I63.9 - Cerebral infarction, unspecified SNOMED: 126357719 Assessment/Plan #Acute CVA - hx of cva, cad, current smoker on DAPT #Headache - suspect due to CVA #Abdominal pain #CAD #Chest pain - admit to in pt - transfer to [facility] for higher level of care & neurology consult/mgt - c/w DAPT (ASA/Plavix) - surveillance monitor - MRI B, MRA head & neck - TTE - cardiology consult, dr Henry - serial Tn/EKG - q2h neuro checks - PO/OT/FILAMENT SHAPER w/ swallow eval - Pain control - supportive care - cardiac diet - dvt ppx w/ SCDs, HSQ - full code w/ discussion, DPOA is daughter expect pt will require 2-3 days of in pt care anticipate discharge to SNF once medically stable I spent 75 min on this case and 48 min was dedicated to counseling and or care coordination time to this note does not reflect the time of the clinical encounter Jorge Davis MD Jan 16, 2018 15:12
--- NOTE | 2018-01-16 15:16 | Discharge Summary ---
Discharge Summary Hospital Course Date of Admission Jan 15, 2018 at 20:21 Date of Discharge 01/15/18 Admitting Diagnosis Acute coronary syndrome HPI Laquita Dasilva is a 77 year old female who was admitted on Jan 15, 2018 at 20:21 for Acute Coronary Syndrome found to have acute cortical cva on CT brain w / associated vision changes, extremity weakness and slurred speech. Pt had continued evolving symptoms after admission and will be transferred to [facility] for higher level of care. Continued on DAPT. Hospital Course Continued on DAPT Evaluated by cardiology Workup of CVA initiated Discharge Discharge Disposition Patient was transferred to [facility] Discharge Diagnoses: (1) HTN (hypertension) (2) Abdominal pain (3) CAD (coronary artery disease) (4) CVA (cerebral vascular accident) Jorge Davis MD Jan 16, 2018 15:16
[2018-01-16] MEDS ORDERED: Atorvastatin 80mg tab ORAL SCH (21:00)
--- NOTE | 2018-01-17 11:13 | Cardiology Report ---
APPROVED REPORT EXAM: Two-dimensional and M-mode echocardiogram with Doppler and color Doppler. INDICATION Chest Pain M-Mode DIMENSIONS IVSd1.3 (0.7-1.1cm)Left Atrium (MM)3.8 (1.6-4.0cm) LVDd3.9 (3.5-5.6cm)Aortic Root3.1 (2.0-3.7cm) PWd1.2 (0.7-1.1cm)Aortic Cusp Exc.1.8 (1.5-2.0cm) LVDs3.0 (2.5-4.0cm) PWs1.4 cm Technically difficult study due to poor acoustic windows. Study quality precludes accurate assessment of regional wall motion. Normal left ventricular chamber size, systolic function and wall motion. Left ventricular ejection fraction estimated to be 55-60 %. Mild left ventricular hypertrophy. No evidence of pericardial effusion. All other cardiac chamber sizes are within normal limits. Mild focal aortic valve sclerosis with adequate cusp excursion. Mildly thickened mitral valve leaflets with normal excursion. Mild mitral annulus and aortic root calcification. Normal pulmonic valve structure. Normal tricuspid valve structure. IVC is normal in size with physiological collapse. A color flow and spectral Doppler study was performed and revealed: No aortic insufficiency. Trace mitral regurgitation. Mitral diastolic velocities suggest mild left ventricular diastolic dysfunction (Grade I). No tricuspid regurgitation. Tricuspid systolic velocities suggests peak right ventricular systolic pressure of 11 mmHg. Trace pulmonic regurgitation present.
== END 2018-01-16 15:15 | disposition short-term general hospital (02) | DRG 66 ==
LOC: EMR 19:26 → 2E 20:21 → EDBEDREQ 23:00 → 2E 23:25
DX: I63.9 Cerebral infarction, unspecified (principal); I10 Essential (primary) hypertension; R10.9 Unspecified abdominal pain; I25.10 Atherosclerotic heart disease of native coronary artery without angina pectoris; Z88.6 Allergy status to analgesic agent; Z88.0 Allergy status to penicillin; K21.9 Gastro-esophageal reflux disease without esophagitis; Z95.1 Presence of aortocoronary bypass graft; F17.200 Nicotine dependence, unspecified, uncomplicated; E78.5 Hyperlipidemia, unspecified; Z86.73 Personal history of transient ischemic attack (TIA), and cerebral infarction without residual deficits; G62.9 Polyneuropathy, unspecified; M81.0 Age-related osteoporosis without current pathological fracture; M10.9 Gout, unspecified; Z79.02 Long term (current) use of antithrombotics/antiplatelets
CPT/HCPCS: 36415; 70450; 70551; 71045; 74176; 80048; 80053; 82550; 82553; 83690; 83880; 84484; 85025; 93005; 93306; 93880; 96374; 96375; 99285